=== PATIENT | male | born 1955 | race Caucasian/White ===

== ENCOUNTER 2022-11-27 01:57 | Inpatient (IN) | payer MEDICARE, OTHER ==
[~2022-11-27] VITALS: Ht 177.8 cm; Wt 89.4 kg
--- NOTE | 2022-11-27 02:00 | NUR ---
BIBRA 100 FROM [facility] HGB OF 7.4, K: 5.6 AND ELEVATED WBC. PATIENT CAME UNRESPONSIVE, AAOX0, WITH TRACHE ATTACHED TO VENT. WITH GTUBE FOR FEEDING AND MEDS. WITH IFC ATTACHED TO UROBAG. PATIENT CAME WITH IV KIM ON LEFT HAND G20.
--- NOTE | 2022-11-27 02:24 | NUR ---
PT CONNECTED TO VENT SETTINGS: TOLERATING VENT WELL AT SPO2 100% FIO2 70% VT 500 RR 16 I:E 1:2 PEEP 5
--- NOTE | 2022-11-27 02:25 | NUR ---
EMT AT PT'S BEDSIDE FOR EKG
--- NOTE | 2022-11-27 02:26 | NUR ---
COVID ANTIGEN SWAB COLLECTED AND SENT TO LAB
--- NOTE | 2022-11-27 02:26 | NUR ---
L KHANH #20G S/L BLOOD COLLECTED AND SENT TO LAB
[2022-11-27] MEDS ORDERED: ACETAMINOPHEN 650 MG/SUPP.RECT RC ONE ×2 (02:27→02:30)
[2022-11-27] MEDS ORDERED: IV NS 0.9% 1,000 ML BAG IV ONE (02:30)
--- NOTE | 2022-11-27 02:35 | NUR ---
COOLING MEASURES IN PLACE.
--- NOTE | 2022-11-27 02:39 | NUR ---
IV KIM G20 INSERTED ON RIGHT HAND.
[2022-11-27 02:46] LABS: BASOPHILS # (AUTO) 0.1 K/uL (0.0-0.2); BASOPHILS % (AUTO) 0.3 % (0.0-2.0); EOSINOPHILS % (AUTO) 4.3 % (0.0-6.0); HEMATOCRIT 24 % (39-51); HEMOGLOBIN 7.7 g/dL (13.5-17.5); LYMPHOCYTES # (AUTO) 1.5 K/uL (0.8-4.8); LYMPHOCYTES % (AUTO) 7.7 % (20.0-44.0); MEAN CORPUSCULAR HGB CONC 32 g/dl (31.0-36.0); MEAN CORPUSCULAR VOLUME 94 fL (80-96); MONOCYTES # (AUTO) 1.1 K/uL (0.1-1.30); MONOCYTES % (AUTO) 5.5 % (2.0-12.0); NEUTROPHILS # (AUTO) 16.1 K/uL (1.8-8.9); NEUTROPHILS % (AUTO) 82.2 % (43.0-81.0); PLATELET COUNT (AUTO) 391 K/uL (150-450); RED BLOOD CELL COUNT(AUTO) 2.55 MIL/uL (4.5-6.0); WHITE BLOOD COUNT (AUTO) 19.5 K/uL (4.3-11.0)
--- NOTE | 2022-11-27 02:48 | NUR ---
RT NOTE LATE ENTRY Pt rec'd trached on mech vent on AC mode settings given from FD. Pt shows no signs of resp distress or sob noted. trach is patent and secured. pt sx'd for mod amt of yellow secretions. alarms are set and audible. Micha bag @ bedside. Addendum: 11/27/22 at 0315 by ROD AARON RT Amended: Links added.
[2022-11-27 02:50] LABS: BILIRUBIN,URINE NEGATIVE (NEGATIVE); COLOR,URINE YELLOW (YELLOW); LEUKOCYTE ESTERASE ,URINE 3+ (NEGATIVE); NITRITE, URINE POSITIVE (NEGATIVE); PH,URINE 7.5 (5.0-8.0); PROTEIN,URINE 1+ mg/dl (NEGATIVE); UGLUCOSE NEGATIVE (NEGATIVE); UROBILINOGEN,URINE 0.2 EU/dL (0.2)
[2022-11-27 03:04] LABS: ALANINE AMINOTRANSFERASE 18 U/L (12-78); ALBUMIN 2.7 g/dL (3.4-5.0); ALKALINE PHOSPHATASE 128 U/L (46-116); ASPARTATE AMINOTRANSFERASE 18 U/L (15-37); BILIRUBIN,DIRECT 0.2 mg/dL (0.0-0.2); BILIRUBIN,TOTAL 0.3 mg/dL (0.2-1.0); CALCIUM, SERUM 9.3 mg/dL (8.5-10.1); CARBON DIOXIDE 29 mmol/L (21-32); CHLORIDE 104 mmol/L (98-107); CREATININE 1.7 mg/dL (0.6-1.3); GLUCOSE 125 mg/dL (74-106); LIPASE 93 U/L (73-393); POTASSIUM 5.5 mmol/L (3.5-5.1); SODIUM SERUM 139 mmol/L (136-145); TOTAL PROTEIN, SERUM 8.9 g/dL (6.4-8.2); UREA NITROGEN, BLOOD 59 mg/dL (7-18)
[2022-11-27 03:17] LABS: BACTERIA,URINE Many /HPF (None Seen); SQUAMOUS EPITHELIAL CELL,UR Few /HPF (None Seen)
[2022-11-27] MEDS ORDERED: CEFTRIAXONE 1GM BAG (ER ONLY) 50 ML IV ONE (03:20)
[2022-11-27] MEDS ORDERED: AZITHROMYCIN 500 MG in IV D5W 250 ML IV SCH (03:30)
[2022-11-27] MEDS ORDERED: CEFTRIAXONE 1GM BAG (ER ONLY) 1 GM/50 ML PIGGYBACK IV ONE (03:30)
[2022-11-27] MEDS ORDERED: AZITHROMYCIN 500 MG VIAL ONE (03:30)
--- NOTE | 2022-11-27 03:47 | NUR ---
REPORT GIVEN TO GERALDINE BRUCE RN FOR ABHINAV
[2022-11-27] MEDS ORDERED: ONDANSETRON HCL/PF 4 MG/2 ML VIAL IVP PRN (04:00)
[2022-11-27] MEDS ORDERED: ACETAMINOPHEN 325 MG TABLET PO PRN (04:00)
[2022-11-27] MEDS ORDERED: MORPHINE SULFATE INJ 2 MG/ML DISP.SYRIN IV PRN (04:00)
[2022-11-27] MEDS ORDERED: CEFEPIME 2 GM in IV D5W 100 ML IV ONE (04:30)
--- NOTE | 2022-11-27 05:24 | NUR ---
TRANSFERRED TO [facility] VIA ACLS PROTOCOL
[2022-11-27] MEDS: IV NS 0.9% 1,000 ML IV SCH ×2 (06:54→18:07)
[2022-11-27] MEDS ORDERED: SODIUM POLYSTYRENE SULFONATE 15 G/60 ML BOTTLE PO ONE (07:30)
[2022-11-27 08:00] VITALS: BP 101/40
[2022-11-27] MEDS ORDERED: FINA5TAB11 GT (08:37)
[2022-11-27] MEDS ORDERED: CICL6.6S5 TP (08:37)
[2022-11-27] MEDS ORDERED: ZINC50TA65 GT (08:37)
[2022-11-27] MEDS ORDERED: FERR325T23 GT (08:37)
[2022-11-27] MEDS ORDERED: LAMO150T6 PO (08:37)
[2022-11-27] MEDS ORDERED: CRAN400C GT (08:37)
[2022-11-27] MEDS ORDERED: ENOX40DI SQ (08:37)
[2022-11-27] MEDS ORDERED: DILTIAZEM GT (08:37)
[2022-11-27] MEDS ORDERED: IPRA0.2S9 IH (08:37)
[2022-11-27] MEDS ORDERED: CLOB15OI3 TP (08:37)
[2022-11-27] MEDS ORDERED: AMIN887L GT (08:37)
[2022-11-27] MEDS ORDERED: DOCU-141 GT (08:37)
[2022-11-27] MEDS ORDERED: ALBU1.257 IH (08:37)
[2022-11-27] MEDS ORDERED: LACT100027 PO (08:37)
[2022-11-27] MEDS ORDERED: LANS30CA62 GT (08:37)
[2022-11-27] MEDS ORDERED: TAMS-12 GT (08:37)
[2022-11-27] MEDS ORDERED: POTA20PA3 GT (08:37)
[2022-11-27] MEDS ORDERED: LISI-768 PO (08:37)
[2022-11-27] MEDS ORDERED: LEVE1000 GT (08:37)
[2022-11-27] MEDS ORDERED: ACET325T53 GT ×2 (08:37)
[2022-11-27] MEDS ORDERED: MAGN400O6 GT (08:37)
[2022-11-27] MEDS ORDERED: BISA10SU11 RC (08:37)
[2022-11-27] MEDS ORDERED: METO25TA6 GT (08:37)
[2022-11-27] MEDS ORDERED: NA P133E RC (08:37)
[2022-11-27] MEDS ORDERED: FURO-144 GT (08:37)
[2022-11-27] MEDS ORDERED: ASCO500C17 GT (08:37)
[2022-11-27] MEDS ORDERED: ATOR40TA GT (08:37)
[2022-11-27] MEDS ORDERED: CEFEPIME 2 GM in IV D5W 100 ML IV SCH ×2 (09:00→17:00)
[2022-11-27] MEDS: HEPARIN SODIUM, PORCINE 5000 UNITS/1 ML VIAL SQ SCH ×2 (09:21→21:34)
[2022-11-27] MEDS ORDERED: SODIUM POLYSTYRENE SULF. PWD 15 GM UDC PO ONE (11:00)
[2022-11-27 12:00] VITALS: BP 106/50
[2022-11-27] MEDS ORDERED: PIPERACILLIN /TAZOBACTAM 3.375 G in IV D5W 50 ML IV SCH (13:00)
[2022-11-27] MEDS ORDERED: IPRATROPIUM/ALBUTEROL INHALER IH SCH (13:00)
[2022-11-27] MEDS ORDERED: VANCOMYCIN 1.25 GM in IV D5W 250 ML IV ONE (14:00)
[2022-11-27 16:00] VITALS: BP 107/55
[2022-11-27] MEDS: ALBUTEROL FS 2.5 MG/3 ML VIAL.NEB NEB SCH ×2 (18:43→23:32)
[2022-11-27] MEDS: IPRATROPIUM NEB FS 0.5 MG/2.5 ML AMPUL.NEB NEB SCH ×2 (18:43→23:32)
--- NOTE | 2022-11-27 19:30 | NUR ---
RN NOTE RECEIVED PT FOR CONTINUITY OF CARE. PATIENT IN NO S/SX OF ACUTE DISTRESS AT THIS TIME; CURRENTLY ON MECHANICAL VENT; SETTING PRESCRIBED, WITH 02 SAT >95% AT THIS TIME. WITH IV ACCESS PATENT, INTACT AND FLUSHING WELL. WITH RUNNING NS@75CC/Hr. WITH PEG TUBE INTACT AND CLAMPED AT THIS TIME. WILL ENSURE SAFETY MEASURES WITHIN THE SHIFT. PATIENT BED ALARM IS ON. HEAD OF BED ELEVATED. BED IS LOCKED, IN LOWEST POSITION AND SIDE RAILS UP. CALL LIGHT WITHIN REACH OF THE PATIENT. WILL CONTINUE TO MONITOR AND REASSESS FOR ANY CHANGES AND WILL CARRY OUT ANY ONGOING AND ACTIVE MD ORDER.
[2022-11-27 20:00] VITALS: BP 101/57
[2022-11-27] MEDS: PIPERACILLIN /TAZOBACTAM 3.375 G in IV D5W 100 ML IV SCH (21:33)
[2022-11-27] MEDS ORDERED: NA PHOS,M-B/NA PHOS,DI-BA 1 EA ENEMA RC PRN (23:30)
[2022-11-27] MEDS ORDERED: IPRATROPIUM NEB FS 0.5 MG/2.5 ML AMPUL.NEB IH PRN (23:30)
[2022-11-27] MEDS ORDERED: BISACODYL SUPP (10 MG) 10 MG/SUPP.RECT SUPP.RECT RC PRN (23:30)
[2022-11-27] MEDS ORDERED: MAGNESIUM HYDROXIDE 30 ML UDC GT PRN (23:30)
[2022-11-28] VITALS (15 sets, daily range): BP systolic 102–137; BP diastolic 54–75
[2022-11-28] MEDS: FUROSEMIDE 40 MG TABLET GT SCH ×3 (00:07→16:04)
[2022-11-28] MEDS: LISINOPRIL (5MG) 5 MG TABLET PO SCH ×2 (00:08→08:26)
[2022-11-28] MEDS: METOPROLOL TARTRATE 25 MG TABLET GT SCH ×3 (00:09→21:09)
[2022-11-28] MEDS: FINASTERIDE (5 MG) 5 MG TABLET GT SCH ×2 (01:12→08:29)
[2022-11-28] MEDS: TAMSULOSIN 0.4 MG CAP.SR.24H GT SCH ×2 (01:19→21:09)
[2022-11-28] MEDS: LEVETIRACETAM SOL (5 ML) 100 MG/ML UDC GT SCH ×3 (01:20→21:09)
[2022-11-28] MEDS: ZINC SULFATE 220 MG CAPSULE GT SCH ×2 (01:20→08:25)
[2022-11-28] MEDS: LamoTRIgine 100 MG TABLET PO SCH ×3 (01:21→21:10)
[2022-11-28] MEDS: VANCOMYCIN HCL IV SCH ×2 (01:22→16:00)
[2022-11-28] MEDS: D5W IV SCH ×2 (01:22→16:00)
[2022-11-28] MEDS: ACETAMINOPHEN 650 MG/20.3 ML UDC GT SCH ×3 (01:25→16:04)
[2022-11-28] MEDS: IPRATROPIUM NEB FS 0.5 MG/2.5 ML AMPUL.NEB NEB SCH ×6 (03:34→23:44)
--- NOTE | 2022-11-28 04:00 | NUR ---
RN NOTE PATIENT REMAINED TO BE IN NO SIGNS OF ACUTE RESPIRATORY DISTRESS , VITAL SIGNS STABLE AT THIS TIME. REGULAR TURNING AND REPOSITIONING DONE, SUCTIONING DONE, AND AM PATIENT CARE RENDERED WILL CONTINUE TO MONITOR AND REASSESS FOR ANY CHANGES THROUGHOUT THE SHIFT.
[2022-11-28] MEDS: PIPERACILLIN /TAZOBACTAM 3.375 G in IV D5W 100 ML IV SCH ×3 (05:13→20:35)
[2022-11-28] MEDS: IV NS 0.9% 1,000 ML IV SCH (06:20)
[2022-11-28 06:39] LABS: BASOPHILS # (AUTO) 0.1 K/uL (0.0-0.2); BASOPHILS % (AUTO) 0.4 % (0.0-2.0); EOSINOPHILS % (AUTO) 6.8 % (0.0-6.0); LYMPHOCYTES # (AUTO) 2.1 K/uL (0.8-4.8); LYMPHOCYTES % (AUTO) 13.4 % (20.0-44.0); MEAN CORPUSCULAR HGB CONC 32 g/dl (31.0-36.0); MEAN CORPUSCULAR VOLUME 95 fL (80-96); MONOCYTES # (AUTO) 0.6 K/uL (0.1-1.30); MONOCYTES % (AUTO) 4.2 % (2.0-12.0); NEUTROPHILS # (AUTO) 11.6 K/uL (1.8-8.9); NEUTROPHILS % (AUTO) 75.2 % (43.0-81.0); PLATELET COUNT (AUTO) 276 K/uL (150-450); RED BLOOD CELL COUNT(AUTO) 2.02 MIL/uL (4.5-6.0); WHITE BLOOD COUNT (AUTO) 15.4 K/uL (4.3-11.0)
--- NOTE | 2022-11-28 06:44 | NUR ---
RN CLOSING NOTE PATIENT REMAINS IN ROOM IN NO SIGNS OF RESPIRATORY DISTRESS, PATIENT STILL ON MECH VENT; SETTINGS PRESCRIBED;TOLERATING WELL SATURATING @ >95% SP02. SR ON MONITOR. SAFETY MEASURES IMPLEMENTED, BED IN LOWEST POSITION, LOCKED, SIDE RAILS UP, CALL LIGHT WITHIN REACH. ALL NEEDS AND ORDERS ADDRESSED DURING THE SHIFT. IV ACCESS MAINTAINED INTACT, SECURED AND FLUSHING WELL. ALL DUE MEDS GIVEN ORDERED & SCHEDULED ; PATIENT TOLERATED WELL. PATIENT KEPT CLEAN AND COMFORTABLE WITHIN THE SHIFT. PATIENT ENDORSED TO INCOMING SHIFT RN WITH STABLE VITAL SIGN AND FOR CONTINUITY OF CARE.
[2022-11-28 07:07] LABS: HEMOGLOBIN 6.1 g/dL (13.5-17.5)
[2022-11-28 07:08] LABS: HEMATOCRIT 19 % (39-51)
[2022-11-28 07:15] LABS: ALBUMIN 2.1 g/dL (3.4-5.0); BILIRUBIN,TOTAL 0.3 mg/dL (0.2-1.0); CALCIUM, SERUM 8.8 mg/dL (8.5-10.1); CREATININE 1.5 mg/dL (0.6-1.3); MAGNESIUM 2.8 mg/dL (1.8-2.4); POTASSIUM 3.4 mmol/L (3.5-5.1); TOTAL PROTEIN, SERUM 7.8 g/dL (6.4-8.2)
--- NOTE | 2022-11-28 07:26 | NUR ---
RN OPEN NOTE PATIENT REMAINS IN ROOM IN NO SIGNS OF RESPIRATORY DISTRESS, PATIENT STILL ON MECH VENT; SETTINGS PRESCRIBED;TOLERATING WELL SATURATING @ >95% SP02. SR ON MONITOR. SAFETY MEASURES IMPLEMENTED, BED IN LOWEST POSITION, LOCKED, SIDE RAILS UP, CALL LIGHT WITHIN REACH. IV ACCESS ON L HAND 29 G , AND R HAND 29 G SECURED AND FLUSHING WELL. WILL KEEP PATIENT KEPT CLEAN AND COMFORTABLE WITHIN THE SHIFT. WILL CONTINUE TO MONITOR
[2022-11-28] MEDS: ALBUTEROL FS 2.5 MG/3 ML VIAL.NEB NEB SCH ×5 (08:02→19:52)
[2022-11-28] MEDS: PROSOURCE / PROSTAT (PYXIS) 30 ML UDC GT SCH ×2 (08:22→16:04)
[2022-11-28] MEDS: ASCORBIC ACID 500 MG TABLET GT SCH (08:23)
[2022-11-28] MEDS: PANTOPRAZOLE 40 MG TABLET.DR PO SCH (08:25)
[2022-11-28] MEDS: FERROUS SULFATE (325 MG) 325 MG/TAB TABLET GT SCH ×3 (08:26→16:04)
[2022-11-28] MEDS: CLOBETASOL 0.05% OINT 30 GM TUBE TP SCH ×2 (08:38→16:18)
[2022-11-28] MEDS ORDERED: ENOXAPARIN SODIUM 40 MG/0.4 ML DISP.SYRIN SQ SCH (09:00)
[2022-11-28] MEDS ORDERED: POTASSIUM CHLORIDE 20 MEQ POWDER PACKET GT SCH (09:00)
[2022-11-28] MEDS ORDERED: CRANBERRY EXT/C/L. SPOROGENES 405 MG/TAB TABLET GT SCH (09:00)
[2022-11-28] MEDS ORDERED: PREVACID (NF) 30 MG TAB GT SCH (09:00)
[2022-11-28] MEDS ORDERED: CICLOPIROX TP SCH (09:00)
--- NOTE | 2022-11-28 11:45 | NUR ---
RT NOTE: NO SCANNING DUE TO COMPUTER/SCANNER AVAILABLE. JONO SORIANO NOTIFIED. Addendum: 11/28/22 at 1808 by ANDREW BRICE RT RT NOTE: NO MEDICATION SCANNING DUE TO COMPUTER/SCANNER NOT AVAILABLE. JONO SORIANO NOTIFIED.
[2022-11-28] MEDS: DILTIAZEM HCL 30 MG TABLET PO SCH (17:01)
[2022-11-28 19:27] LABS: BAND % (MANUAL) 1 % (0.0-5.0); EOSINOPHILS % (MANUAL) 5 % (0-4); LYMPHOCYTES % (MANUAL) 14 % (16-48); MONOCYTES % (MANUAL) 4 % (0-11.0); NEUTROPHILS % (MANUAL) 76 (42-76)
--- NOTE | 2022-11-28 19:37 | NUR ---
RN OPENING NOTE PATIENT ASLEEP NO SIGNS OF RESPIRATORY DISTRESS, PATIENT STILL ON MECH VENT; SETTINGS PRESCRIBED;TOLERATING WELL SATURATING @ >95% SP02. SR ON MONITOR. SAFETY MEASURES IMPLEMENTED, BED IN LOWEST POSITION, LOCKED, SIDE RAILS UP, CALL LIGHT WITHIN REACH. IV ACCESS MAINTAINED INTACT, SECURED AND FLUSHING WELL. PATIENT KEPT CLEAN AND COMFORTABLE PT AT BEDSIDE DRAKE .
--- NOTE | 2022-11-28 20:28 | NUR ---
RT Received pt on ordered vent settings: AC 16 500 40% +5. Pt asleep upon initial assessment, SPO2 100%. No respiratory distress noted. Neb tx given and tolerated, no adverse reactions noted. Suctioned x2 & PRN with thick yellow secretions. Trach is patent and secured. Ambu-bag bedside. Vent is plugged into red outlet, and alarms are on and audible.
[2022-11-28] MEDS: ATORVASTATIN 40 MG TABLET GT SCH (21:09)
[2022-11-28] MEDS: DOCUSATE SODIUM 100 MG CAPSULE PO SCH (21:09)
[2022-11-29] MEDS: DILTIAZEM HCL 30 MG TABLET PO SCH ×4 (00:48→17:22)
[2022-11-29 00:59] VITALS: BP 138/72
[2022-11-29] MEDS: ALBUTEROL FS 2.5 MG/3 ML VIAL.NEB NEB SCH ×4 (01:53→19:49)
[2022-11-29] MEDS: VANCOMYCIN HCL IV SCH ×2 (02:26→14:10)
[2022-11-29] MEDS: D5W IV SCH ×2 (02:26→14:10)
[2022-11-29] MEDS: IPRATROPIUM NEB FS 0.5 MG/2.5 ML AMPUL.NEB NEB SCH ×4 (03:50→19:49)
[2022-11-29 04:38] VITALS: BP 140/77
[2022-11-29] MEDS: PIPERACILLIN /TAZOBACTAM 3.375 G in IV D5W 100 ML IV SCH ×3 (06:35→22:14)
--- NOTE | 2022-11-29 06:59 | NUR ---
RN CLOSING NOTE PATIENT ASLEEP NO SIGNS OF RESPIRATORY DISTRESS, PATIENT STILL ON MECH VENT; SETTINGS PRESCRIBED;TOLERATING WELL SATURATING @ >95% SP02. SR ON MONITOR. SAFETY MEASURES IMPLEMENTED, BED IN LOWEST POSITION, LOCKED, SIDE RAILS UP, CALL LIGHT WITHIN REACH. IV ACCESS MAINTAINED INTACT, SECURED AND FLUSHING WELL RUINING NS@75ML/HR PATIENT KEPT CLEAN AND COMFORTABLE.
[2022-11-29 07:10] LABS: BASOPHILS # (AUTO) 0.1 K/uL (0.0-0.2); BASOPHILS % (AUTO) 0.5 % (0.0-2.0); EOSINOPHILS % (AUTO) 11.3 % (0.0-6.0); HEMATOCRIT 22 % (39-51); HEMOGLOBIN 7.2 g/dL (13.5-17.5); LYMPHOCYTES # (AUTO) 1.7 K/uL (0.8-4.8); LYMPHOCYTES % (AUTO) 16.1 % (20.0-44.0); MEAN CORPUSCULAR HGB CONC 33 g/dl (31.0-36.0); MEAN CORPUSCULAR VOLUME 93 fL (80-96); MONOCYTES # (AUTO) 0.6 K/uL (0.1-1.30); MONOCYTES % (AUTO) 5.3 % (2.0-12.0); NEUTROPHILS % (AUTO) 66.8 % (43.0-81.0); PLATELET COUNT (AUTO) 279 K/uL (150-450); RED BLOOD CELL COUNT(AUTO) 2.36 MIL/uL (4.5-6.0); WHITE BLOOD COUNT (AUTO) 10.5 K/uL (4.3-11.0)
[2022-11-29 07:28] LABS: CALCIUM, SERUM 8.9 mg/dL (8.5-10.1); CREATININE 1.2 mg/dL (0.6-1.3); MAGNESIUM 2.5 mg/dL (1.8-2.4); PHOSPHORUS 3.3 mg/dL (2.5-4.9); POTASSIUM 3.2 mmol/L (3.5-5.1)
[2022-11-29 08:00] VITALS: BP 105/70
--- NOTE | 2022-11-29 08:12 | NUR ---
CANDY CUTTER MACHINE NOTES PATIENT IN BED WITH EYES OPEN. OBTUNDED WITH TRACH TO VENT SETTING ORDERED. HEAD OF BED ELEVATED. ON TELE MONITOR WITH HR SINUS BRADYCARDIA 51. ON TRINH CATH DRAINING TO GRAVITY ITH YELLOW URINE. G TUBE CLAMPED. NPO EXCEPT MEDS. GLEN MIDLINE IN PLACE WITH IV FLUID ORDERED. ALL NEEDS ATTENDED. BED ON LOWEST LOCKED POSITION, CALL LIGHT WITHIN REACH. WILL CONTINUE TO MONITOR.
[2022-11-29] MEDS: METOPROLOL TARTRATE 25 MG TABLET GT SCH ×2 (09:00→21:00)
[2022-11-29] MEDS: LamoTRIgine 100 MG TABLET PO SCH ×2 (09:13→22:15)
[2022-11-29] MEDS: ZINC SULFATE 220 MG CAPSULE GT SCH (09:13)
[2022-11-29] MEDS: ACETAMINOPHEN 650 MG/20.3 ML UDC GT SCH ×2 (09:13→16:42)
[2022-11-29] MEDS: PANTOPRAZOLE 40 MG TABLET.DR PO SCH (09:13)
[2022-11-29] MEDS: FINASTERIDE (5 MG) 5 MG TABLET GT SCH (09:13)
[2022-11-29] MEDS: FERROUS SULFATE (325 MG) 325 MG/TAB TABLET GT SCH ×3 (09:13→16:42)
[2022-11-29] MEDS: LEVETIRACETAM SOL (5 ML) 100 MG/ML UDC GT SCH ×2 (09:13→22:14)
[2022-11-29] MEDS: PROSOURCE / PROSTAT (PYXIS) 30 ML UDC GT SCH ×2 (09:14→16:44)
[2022-11-29] MEDS: ASCORBIC ACID 500 MG TABLET GT SCH (09:14)
[2022-11-29] MEDS: CLOBETASOL 0.05% OINT 30 GM TUBE TP SCH ×2 (09:50→17:26)
--- NOTE | 2022-11-29 10:26 | NUR ---
DIGITAL ASSISTANT NOTE PER DR GHADA ROMERO TO GIVE LING AND PRINBK AWARE THAT BP 105/70
[2022-11-29] MEDS: FUROSEMIDE 40 MG TABLET GT SCH ×2 (10:30→16:42)
[2022-11-29] MEDS: LISINOPRIL (5MG) 5 MG TABLET PO SCH (10:30)
[2022-11-29] MEDS ORDERED: POTASSIUM CHLORIDE 20 MEQ POWDER PACKET GT SCH (11:00)
[2022-11-29 12:00] VITALS: BP 108/60
--- NOTE | 2022-11-29 12:26 | NUR ---
COMPUTER TYPESETTER NOTE SEEN BY DR RODRIGUEZ UPDATED PATIENT CONDITION
--- NOTE | 2022-11-29 15:04 | NUR ---
FUSE SPOOLER NOTES ROUNDS MADE. REPOSITIONED. TRACH CARE COMPLETED. GTUBE FEEDING STARTED ORDERED BY DR ARTHUR. TOLERATING WELL. WOUND CONSULT PENDING.
[2022-11-29] MEDS: JEVITY 1.2 CAL 1,000 ML BOTTLE GT SCH (15:17)
--- NOTE | 2022-11-29 15:21 | NUR ---
COSMETIC ASSEMBLER NOTES STOOL COLLECTED.
[2022-11-29] MEDS: IV NS 0.9% 1,000 ML IV PRN (15:44)
[2022-11-29 16:00] VITALS: BP 125/67
[2022-11-29 16:10] LABS: OCCULT BLOOD STOOL NEGATIVE (NEGATIVE)
--- NOTE | 2022-11-29 18:25 | NUR ---
SENIOR HOUSEKEEPER CLOSING NOTE PATIENT RESTING IN BED WITH FAMIILY MEMBER AT BEDSIDE. [facility] WITH SETTINGS PRESCRIBED. NO SIGNS OF SOB OR RESPIRATORY DISTRESS. TOLERATING WELL. SB ON MONITOR. URINE DRAINING TO GRAVITY AND YELLOW. G-TUBE IN PLACE WITH JEVITY RUNNING AT 30 ML/HR. TOLERATING WELL. IV ACCESS AT GLEN MIDLINE RUNNING NS @ 75ML/HR. IV ACCESS IN L HAND 20G. INTACT AND FLUSHING WELL. ALL SAFETY MEASURES IN PLACE WITH BED IN LOWEST POSITION, LOCKED, SIDE RAILS UP AND CALL LIGHT WITHIN REACH. WILL ENDORSE TO PM NURSE FOR CONTINUITY OF CARE.
--- NOTE | 2022-11-29 19:30 | NUR ---
SELF DEFENSE INSTRUCTOR OPENING NOTE RECEIVED PATIENT REST[facility] BED [facility] WITH [facility]TINGS PRESCRIBED. NO SIGNS OF SOB OR RESPIRATORY DISTRESS. TOLERATING WELL. SB ON MONITOR. URINE DRAINING TO GRAVITY AND YELLOW. G-TUBE IN PLACE WITH JEVITY RUNNING AT 30 ML/HR. TOLERATING WELL. IV ACCESS AT GLEN MIDLINE RUNNING NS @ 75ML/HR. IV ACCESS IN L HAND 20G. INTACT AND FLUSHING WELL. ALL SAFETY MEASURES IN PLACE WITH BED IN LOWEST POSITION, LOCKED, SIDE RAILS UP AND CALL LIGHT WITHIN REACH. WILL CONTINUE TO MONITOR THROUGHOUT THE SHIFT.
[2022-11-29 20:00] VITALS: BP 135/66
[2022-11-29] MEDS: ATORVASTATIN 40 MG TABLET GT SCH (22:15)
[2022-11-29] MEDS: TAMSULOSIN 0.4 MG CAP.SR.24H GT SCH (22:15)
[2022-11-29] MEDS: DOCUSATE SODIUM 100 MG CAPSULE PO SCH (22:15)
--- NOTE | 2022-11-29 22:30 | NUR ---
RN NOTE SCHEDULED METOPROLOL HELD AT THIS TIME D/T SB AT THE MONITOR WITH HR <60'S. CN MADE AWARE.
[2022-11-30] VITALS: BP 135/58
[2022-11-30] MEDS: IPRATROPIUM NEB FS 0.5 MG/2.5 ML AMPUL.NEB NEB SCH ×4 (01:24→19:34)
[2022-11-30] MEDS: ALBUTEROL FS 2.5 MG/3 ML VIAL.NEB NEB SCH ×4 (01:24→19:34)
[2022-11-30] MEDS: VANCOMYCIN HCL IV SCH (01:32)
[2022-11-30] MEDS: D5W IV SCH (01:32)
[2022-11-30 04:00] VITALS: BP 121/70
[2022-11-30] MEDS: DILTIAZEM HCL 30 MG TABLET PO SCH ×4 (05:22→18:00)
[2022-11-30] MEDS: PIPERACILLIN /TAZOBACTAM 3.375 G in IV D5W 100 ML IV SCH ×3 (05:22→20:26)
[2022-11-30] MEDS: IV NS 0.9% 1,000 ML IV PRN ×2 (05:35→18:54)
--- NOTE | 2022-11-30 05:56 | NUR ---
RN NOTE RECEIVED ABG RESULT FROM RT. CHANNEL CEMENTER INSOLE MACHINE MD MADE AWARE NNO AT THIS TIME. WILL CONT TO MONITOR.
--- NOTE | 2022-11-30 06:47 | NUR ---
HAND SPRING FORMER CLOSING NOTE PATIENT REST[facility]ED [facility] WITH [facility] PRESCRIBED. NO SIGNS OF SOB OR RESPIRATORY DISTRESS. TOLERATING WELL. SR ON MONITOR AT 67. URINE DRAINING TO GRAVITY AND YELLOW. G-TUBE IN PLACE WITH JEVITY RUNNING AT 50 ML/HR. TOLERATING WELL. IV ACCESS AT GLEN MIDLINE RUNNING NS @ 75ML/HR. IV ACCESS IN L HAND 20G. INTACT AND FLUSHING WELL. ALL DUE MEDS GIVEN, KEPT DRY AND CLEAN, ALL SAFETY MEASURES IN PLACE WITH BED IN LOWEST POSITION, LOCKED, SIDE RAILS UP AND CALL LIGHT WITHIN REACH. WILL ENDORSE TO AM SHIFT NURSE FOR CONTINUITY OF CARE.
[2022-11-30 06:56] LABS: BASOPHILS # (AUTO) 0.1 K/uL (0.0-0.2); BASOPHILS % (AUTO) 0.5 % (0.0-2.0); EOSINOPHILS % (AUTO) 6.9 % (0.0-6.0); HEMATOCRIT 22 % (39-51); HEMOGLOBIN 7.4 g/dL (13.5-17.5); LYMPHOCYTES # (AUTO) 1.5 K/uL (0.8-4.8); LYMPHOCYTES % (AUTO) 10.6 % (20.0-44.0); MEAN CORPUSCULAR HGB CONC 33 g/dl (31.0-36.0); MEAN CORPUSCULAR VOLUME 92 fL (80-96); MONOCYTES # (AUTO) 0.8 K/uL (0.1-1.30); MONOCYTES % (AUTO) 6.1 % (2.0-12.0); NEUTROPHILS # (AUTO) 10.4 K/uL (1.8-8.9); NEUTROPHILS % (AUTO) 75.9 % (43.0-81.0); PLATELET COUNT (AUTO) 272 K/uL (150-450); RED BLOOD CELL COUNT(AUTO) 2.44 MIL/uL (4.5-6.0); WHITE BLOOD COUNT (AUTO) 13.7 K/uL (4.3-11.0)
[2022-11-30 07:08] LABS: CALCIUM, SERUM 8.7 mg/dL (8.5-10.1); CREATININE 1.1 mg/dL (0.6-1.3); POTASSIUM 3.4 mmol/L (3.5-5.1)
[2022-11-30 07:10] LABS: PHOSPHORUS 3.6 mg/dL (2.5-4.9)
--- NOTE | 2022-11-30 07:10 | NUR ---
TELE OPENING CARE: RECEIVED PATINE IN BED, OBTUNDED WITH MECHANICAL VENT ORDERED. NO RESPIRATORY DISTRESS NOTED, WITH OXYGEN SATURATION OF 100%. ON SB WITH HR OF 58 PER TELE MONITOR. HAS IV ACCESS ON LEFT UPPER ARM MIDLINE, INTACT, INFUSING WITH NS @ 75 ML/HR. IV SITE PATENT, NO S/S INFILTRATION NOTED. ON JEVITY @ 50 ML/HR, G-TUBE SITE PATENT AND IN PLACE. TRINH CATHETER IN PLACE VIA GRAVITY, DRAINING WITH YELLOW COLORED URINE, NO HEMATURIA AND NO SEDIMENTATION NOTED. HOB KEPT ELEVATED. ALL SAFETY MEASURES IN PLACE. BED LOCKED AND IN LOWEST POSITION WITH BED ALARM ON. CALL LIGHT WITHIN REACH. WILL CONTINUE TO MONITOR PATIENT THROUGHOUT SHIFT.
[2022-11-30 07:17] LABS: ABG BASE EXCESS -1.6 mmol/L; ABG PCO2 36.2 mmHg (35.0-45.0); ABG PH 7.414 (7.350-7.450); ABG PO2 122.6 mmHg (75.0-100.0); COHb 0.3 % (0.5-1.5); MetHb 0.2 % (0.0-1.5); O2Hb 97.5 % (94.0-97.0); PEEP,BG 5 cm H2O; SITE, ABG Left Radial; VT, ABG 500 mL
[2022-11-30 08:00] VITALS: BP 142/66
[2022-11-30] MEDS: LEVETIRACETAM SOL (5 ML) 100 MG/ML UDC GT SCH ×2 (08:34→20:15)
[2022-11-30] MEDS: LISINOPRIL (5MG) 5 MG TABLET PO SCH (08:35)
[2022-11-30] MEDS: ACETAMINOPHEN 650 MG/20.3 ML UDC GT SCH ×2 (08:35→17:24)
[2022-11-30] MEDS: METOPROLOL TARTRATE 25 MG TABLET GT SCH ×2 (08:35→20:21)
[2022-11-30] MEDS: PANTOPRAZOLE 40 MG TABLET.DR PO SCH (08:35)
[2022-11-30] MEDS: ZINC SULFATE 220 MG CAPSULE GT SCH (08:35)
[2022-11-30] MEDS: FERROUS SULFATE (325 MG) 325 MG/TAB TABLET GT SCH ×3 (08:35→17:24)
[2022-11-30] MEDS: ASCORBIC ACID 500 MG TABLET GT SCH (08:36)
[2022-11-30] MEDS: LamoTRIgine 100 MG TABLET PO SCH ×2 (08:36→20:21)
[2022-11-30] MEDS: FINASTERIDE (5 MG) 5 MG TABLET GT SCH (08:36)
[2022-11-30] MEDS: FUROSEMIDE 40 MG TABLET GT SCH ×2 (08:36→17:24)
[2022-11-30] MEDS: PROSOURCE / PROSTAT (PYXIS) 30 ML UDC GT SCH ×2 (08:38→17:24)
[2022-11-30] MEDS: CLOBETASOL 0.05% OINT 30 GM TUBE TP SCH ×2 (08:39→17:25)
--- NOTE | 2022-11-30 10:41 | NUR ---
WOUND CARE CONSULT: PT PRESENTS WITH LEFT EAR DEEP TISSUE INJURY IN EVOLUTION, SACRAL INTACT DTI WITH SCARRING, AREAS OF SKIN DISCOLORATION, RT AND LEFT FEET DRY WOUNDS, PRESENT ON ADMISSION. DPM CONSULT CALLED TO DR ROWE. DISCUSSED SKIN PROTECTION AND WOUND CARE RECOMMENDATIONS WITH NURSING STAFF. MD IN AGREEMENT WITH PLAN OF CARE. FIRST STEP LOW AIRLOSS MATTRESS ON ORDER. Addendum: 11/30/22 at 1044 by DAVIE ANDINO WNDNU Amended: Links added.
[2022-11-30] MEDS: NEOMY SULF/BACITRAC ZN/POLY 15 GM TUBE TP SCH (11:23)
[2022-11-30 12:00] VITALS: BP 126/64
[2022-11-30] MEDS ORDERED: POTASSIUM CHLORIDE 20 MEQ POWDER PACKET NG SCH (15:00)
[2022-11-30 16:00] VITALS: BP 140/65
--- NOTE | 2022-11-30 18:42 | NUR ---
ELECTRONIC MASKING SYSTEM OPERATOR CLOSING NOTES: PATIENT IN BED, OBTUNDED WITH MECHANICAL VENT ORDERED. NO RESPIRATORY DISTRESS NOTED THROUGHOUT SHIFT. WITH OXYGEN SATURATION OF 100%. ON SB WITH HR OF 47 PER TELE MONITOR. IV ACCESS ON LEFT UPPER ARM MIDLINE, INTACT, INFUSING WITH NS @ 75 ML/HR. NO S/S INFILTRATION NOTED. ON JEVITY @ 65 ML/HR, G-TUBE SITE PATENT AND IN PLACE, NOTED WITH 0- 50 ML OF RESIDUAL DURING SHIFT. TRINH CATHETER IN PLACE VIA GRAVITY, EMPTIED 1800 ML OF YELLOW COLORED URINE. ALL SAFETY MEASURES IMPLEMENTED. HOB KEPT ELEVATED. BED LOCKED AND IN LOWEST POSITION WITH BED ALARM ON. CALL LIGHT WITHIN REACH. WILL ENDORSE TO INCOMING NURSE FOR CONTINUITY OF CARE.
--- NOTE | 2022-11-30 19:50 | NUR ---
DIRECTOR MEDICAL SURGICAL OPENING NOTES RECEIVED PATIENT RESTING IN BED [facility] WITH SETTINGS PRESCRIBED. NO SIGNS OF SOB OR RESPIRATORY DISTRESS. TOLERATING WELL. SB ON MONITOR. URINE DRAINING TO GRAVITY AND YELLOW. G-TUBE IN PLACE WITH JEVITY RUNNING AT 65 ML/HR. TOLERATING WELL. IV ACCESS AT GLEN MIDLINE RUNNING NS @ 75ML/HR. IV ACCESS IN L HAND 20G. INTACT AND FLUSHING WELL. ALL SAFETY MEASURES IN PLACE WITH BED IN LOWEST POSITION, LOCKED, SIDE RAILS UP AND CALL LIGHT WITHIN REACH. WILL CONTINUE TO MONITOR THROUGHOUT THE SHIFT.
[2022-11-30 20:00] VITALS: BP 147/76
[2022-11-30] MEDS: TAMSULOSIN 0.4 MG CAP.SR.24H GT SCH (21:58)
[2022-11-30] MEDS: DOCUSATE SODIUM 100 MG CAPSULE PO SCH (21:59)
[2022-11-30] MEDS: ATORVASTATIN 40 MG TABLET GT SCH (21:59)
[2022-11-30] MEDS: VANCOMYCIN 1 GM in IV D5W 250ml IV SCH (23:38)
[2022-12-01] VITALS: BP 141/67
[2022-12-01] MEDS: DILTIAZEM HCL 30 MG TABLET PO SCH ×4 (00:12→17:05)
[2022-12-01] MEDS: IPRATROPIUM NEB FS 0.5 MG/2.5 ML AMPUL.NEB NEB SCH ×4 (01:51→19:34)
[2022-12-01] MEDS: ALBUTEROL FS 2.5 MG/3 ML VIAL.NEB NEB SCH ×4 (01:51→19:34)
[2022-12-01 04:00] VITALS: BP 139/75
[2022-12-01] MEDS: PIPERACILLIN /TAZOBACTAM 3.375 G in IV D5W 100 ML IV SCH ×3 (04:47→21:30)
[2022-12-01] MEDS: JEVITY 1.2 CAL 1,000 ML BOTTLE GT SCH (06:03)
--- NOTE | 2022-12-01 07:07 | NUR ---
VERTICA ARCHITECT OPENING NOTES: RECEIVED PATIENT IN BED, OBTUNDED WITH MECHANICAL VENT FOLLOWS: AC 16, TC 500, FI02 40%PEEP 5. WITH OXYGEN SATURATION OF 100%. NO RESPIRATORY DISTRESS NOTED. ON SR WITH HR OF 74 PER TELE MONITOR. HAS IV ACCESS ON LEFT UPPER ARM MIDLINE, INTACT, INFUSING WITH NS @ 75 ML/HR. IV SITE PATENT WITH NO S/S INFILTRATION NOTED. ON JEVITY @ 65 ML/HR, G-TUBE SITE PATENT AND IN PLACE. TRINH CATHETER IN PLACE DRAINING VIA GRAVITY WITH YELLOW COLORED URINE, NO HEMATURIA AND NO SEDIMENTATION NOTED. HOB KEPT ELEVATED AT ALL TIMES. ALL SAFETY MEASURES IN PLACE. BED LOCKED AND IN LOWEST POSITION WITH BED ALARM ON. CALL LIGHT WITHIN REACH. WILL CONTINUE TO MONITOR PATIENT THROUGHOUT
[2022-12-01 07:24] LABS: BASOPHILS # (AUTO) 0.1 K/uL (0.0-0.2); BASOPHILS % (AUTO) 0.5 % (0.0-2.0); CALCIUM, SERUM 9.1 mg/dL (8.5-10.1); CREATININE 0.9 mg/dL (0.6-1.3); EOSINOPHILS % (AUTO) 10.2 % (0.0-6.0); HEMATOCRIT 25 % (39-51); HEMOGLOBIN 8.2 g/dL (13.5-17.5); LYMPHOCYTES # (AUTO) 1.7 K/uL (0.8-4.8); LYMPHOCYTES % (AUTO) 15.5 % (20.0-44.0); MEAN CORPUSCULAR HGB CONC 33 g/dl (31.0-36.0); MEAN CORPUSCULAR VOLUME 93 fL (80-96); MONOCYTES # (AUTO) 0.6 K/uL (0.1-1.30); MONOCYTES % (AUTO) 5.6 % (2.0-12.0); NEUTROPHILS # (AUTO) 7.3 K/uL (1.8-8.9); NEUTROPHILS % (AUTO) 68.2 % (43.0-81.0); PLATELET COUNT (AUTO) 322 K/uL (150-450); POTASSIUM 3.1 mmol/L (3.5-5.1); RED BLOOD CELL COUNT(AUTO) 2.71 MIL/uL (4.5-6.0); WHITE BLOOD COUNT (AUTO) 10.8 K/uL (4.3-11.0)
--- NOTE | 2022-12-01 07:54 | NUR ---
MONTESSORI TODDLER TEACHER CLOSING NOTES PATIENT [facility]ED [facility] WITH [facility]TINGS PRESCRIBED. NO SIGNS OF SOB OR RESPIRATORY DISTRESS. TOLERATING WELL. SR ON MONITOR AT 61. URINE DRAINING TO GRAVITY AND YELLOW. G-TUBE IN PLACE WITH JEVITY RUNNING AT 65 ML/HR. TOLERATING WELL. IV ACCESS AT GLEN MIDLINE RUNNING NS @ 75ML/HR. IV ACCESS IN L HAND 20G. INTACT AND FLUSHING WELL. ALL DUE MEDS GIVEN, KEPT DRY AND CLEAN, ALL SAFETY MEASURES IN PLACE WITH BED IN LOWEST POSITION, LOCKED, SIDE RAILS UP AND CALL LIGHT WITHIN REACH. WILL ENDORSE TO AM SHIFT NURSE FOR CONTINUITY OF CARE.
[2022-12-01 08:00] VITALS: BP 120/63
[2022-12-01 09:01] LABS: ABG BASE EXCESS 1.8 mmol/L; ABG OXYGEN SATURATION 98.1 % (92.0-98.5); ABG PCO2 38.7 mmHg (35.0-45.0); ABG PH 7.445 (7.350-7.450); ABG PO2 114.2 mmHg (75.0-100.0); AaDO2 126.5 mmHg; COHb 0.3 % (0.5-1.5); MetHb 0.3 % (0.0-1.5); O2Hb 97.5 % (94.0-97.0); SITE, ABG Right Radial; VENT MODE, BG AC 16 500 40% 5
[2022-12-01 09:05] LABS: MAGNESIUM 1.9 mg/dL (1.8-2.4); PHOSPHORUS 2.8 mg/dL (2.5-4.9)
--- NOTE | 2022-12-01 09:11 | NUR ---
DR. ARTHUR NOTIFIED OF LACTIC ACID OF 2.4
[2022-12-01] MEDS: ACETAMINOPHEN 650 MG/20.3 ML UDC GT SCH ×2 (09:22→16:25)
[2022-12-01] MEDS: ZINC SULFATE 220 MG CAPSULE GT SCH (09:22)
[2022-12-01] MEDS: FERROUS SULFATE (325 MG) 325 MG/TAB TABLET GT SCH ×3 (09:22→16:25)
[2022-12-01] MEDS: LEVETIRACETAM SOL (5 ML) 100 MG/ML UDC GT SCH ×2 (09:22→21:30)
[2022-12-01] MEDS: FUROSEMIDE 40 MG TABLET GT SCH ×2 (09:22→16:25)
[2022-12-01] MEDS: METOPROLOL TARTRATE 25 MG TABLET GT SCH ×2 (09:23→21:34)
[2022-12-01] MEDS: PANTOPRAZOLE 40 MG TABLET.DR PO SCH (09:23)
[2022-12-01] MEDS: LISINOPRIL (5MG) 5 MG TABLET PO SCH (09:23)
[2022-12-01] MEDS: FINASTERIDE (5 MG) 5 MG TABLET GT SCH (09:24)
[2022-12-01] MEDS: ASCORBIC ACID 500 MG TABLET GT SCH (09:24)
[2022-12-01] MEDS: NEOMY SULF/BACITRAC ZN/POLY 15 GM TUBE TP SCH (09:27)
[2022-12-01] MEDS: LamoTRIgine 100 MG TABLET PO SCH ×2 (09:27→21:31)
[2022-12-01] MEDS: CLOBETASOL 0.05% OINT 30 GM TUBE TP SCH ×2 (09:27→16:25)
[2022-12-01] MEDS: PROSOURCE / PROSTAT (PYXIS) 30 ML UDC GT SCH ×3 (09:29→16:25)
[2022-12-01 10:47] LABS: BILIRUBIN,DIRECT 0.2 mg/dL (0.0-0.2); BILIRUBIN,TOTAL 0.6 mg/dL (0.2-1.0)
[2022-12-01 12:00] VITALS: BP 120/63
[2022-12-01] MEDS ORDERED: POTASSIUM CHLORIDE 20 MEQ POWDER PACKET NG SCH (12:00)
--- NOTE | 2022-12-01 15:30 | NUR ---
RECEIVED SPECIAL MATTRESS DELIVERED AND WAS PLACED ON PATIENT'S BED
[2022-12-01] MEDS: IV NS 0.9% 1,000 ML IV PRN (15:57)
[2022-12-01 16:00] VITALS: BP 131/71
--- NOTE | 2022-12-01 18:43 | NUR ---
MANAGER FOOD CLOSING NOTES: PATIENT [facility]ED [facility] WITH [facility]TINGS PRESCRIBED, TOLERATING IT WELL. NO SIGNS OF SOB OR RESPIRATORY DISTRESS NOTED THROUGHOUT SHIFT. PATIENT IS OBTUNDED, AT BEDSIDE. ON SR WITH HR OF 70 PER TELE MONITOR.. IV ACCESS ON LEFT UPPER ARM MIDLINE INTACT, INFUSING WITH NS @ 75 ML/HR, WITH NO S/S INFILTRATION NOTED. LEFT HAND SALINE LOCK IS INTACT, PATENT AND FLUSHES WELL. URINE DRAINING TO GRAVITY AND EMPTIED 1500 ML OF YELLOW COLORED URINE, NO HEMATURIA AND NO SEDIMENTATION NOTED. G-TUBE IN PLACE WITH JEVITY RUNNING ORDERED, TOLERATING WELL, WITH 10 ML OF GASTRIC RESIDUAL NOTED. ALL DUE MEDS GIVEN. ALL SAFETY MEASURES IMPLEMENTED. BED IN LOWEST POSITION, LOCKED, SIDE RAILS UP AND CALL LIGHT WITHIN REACH. WILL ENDORSE TO AM SHIFT NURSE FOR CONTINUITY OF CARE
--- NOTE | 2022-12-01 19:20 | NUR ---
RN NOTE PT RECEIVED IN BED, APPEARS TO BE COMFORTABLE. PT OBTUNDED. OPENS EYES WITH TACTILE STIMULI. CURRENT VENT SETTINGS WELL MERVAT. NO SOB, NO ACUTE RESP DISTRESS NOTED. AFEBRILE. CURRENTLY INFUSING NS AT 75ML/HR ON GLEN ML. GTF CURRENTLY RUNNING JEVITY 65ML/HR ORDERED. FC IN PLACED, SECURED AND PATENT, DRAINING CLEAR YELLOW URINE. HOB ELEVATED. FAMILY AT BEDSIDE. WILL CONT POC.
[2022-12-01 20:00] VITALS: BP 125/69
[2022-12-01] MEDS: DOCUSATE SODIUM 100 MG CAPSULE PO SCH (21:31)
[2022-12-01] MEDS: TAMSULOSIN 0.4 MG CAP.SR.24H GT SCH (21:31)
[2022-12-01] MEDS: ATORVASTATIN 40 MG TABLET GT SCH (21:33)
[2022-12-02] VITALS: BP 130/74
[2022-12-02] MEDS: VANCOMYCIN 1 GM in IV D5W 250ml IV SCH ×2 (00:37→23:13)
[2022-12-02] MEDS: ALBUTEROL FS 2.5 MG/3 ML VIAL.NEB NEB SCH ×4 (02:18→19:26)
[2022-12-02] MEDS: IPRATROPIUM NEB FS 0.5 MG/2.5 ML AMPUL.NEB NEB SCH ×4 (02:19→19:26)
[2022-12-02 04:00] VITALS: BP 141/76
[2022-12-02] MEDS: PIPERACILLIN /TAZOBACTAM 3.375 G in IV D5W 100 ML IV SCH ×3 (05:16→21:20)
[2022-12-02] MEDS: DILTIAZEM HCL 30 MG TABLET PO SCH ×4 (06:18→17:22)
[2022-12-02 06:50] LABS: CREATININE 0.8 mg/dL (0.6-1.3)
--- NOTE | 2022-12-02 07:30 | NUR ---
RN NOTE REMAINS IN STABLE CONDITION. NO SIGNIFICANT CHANGES NOTED. ALL NEEDS ANTICIPATED. ALL DUE MEDICATIONS GIVEN ORDERED. TURN/REPOS Q2H+PRN. KEPT PT CLEAN, DRY AND COMFORTABLE. WILL ENDORSE TO AM SHIFT.
--- NOTE | 2022-12-02 07:30 | NUR ---
TATTOO IDENTIFIER opening NOTES: Pt on bed. pt obtunded and nonverbal. [facility] WITH SETTINGS PRESCRIBED, TOLERATING WELL. on tele monitor. no signs of pain or discomfort at time.pt has left upper arm midline. iv intact, patent and flushing well. pt has pettit cathether with yellow colored urine,. on gtube no residual volume noted. all ALL SAFETY MEASURES IMPLEMENTED. BED IN LOWEST POSITION, LOCKED, SIDE RAILS UP x2 AND CALL LIGHT WITHIN REACH. bed alarm on
[2022-12-02 08:00] VITALS: BP 165/83
[2022-12-02] MEDS: ASCORBIC ACID 500 MG TABLET GT SCH (09:00)
[2022-12-02] MEDS: LEVETIRACETAM SOL (5 ML) 100 MG/ML UDC GT SCH ×2 (10:29→21:21)
[2022-12-02] MEDS: PANTOPRAZOLE 40 MG TABLET.DR PO SCH (10:29)
[2022-12-02] MEDS: ZINC SULFATE 220 MG CAPSULE GT SCH (10:30)
[2022-12-02] MEDS: LISINOPRIL (5MG) 5 MG TABLET PO SCH (10:30)
[2022-12-02] MEDS: METOPROLOL TARTRATE 25 MG TABLET GT SCH ×2 (10:31→21:22)
[2022-12-02] MEDS: FINASTERIDE (5 MG) 5 MG TABLET GT SCH (10:31)
[2022-12-02] MEDS: LamoTRIgine 100 MG TABLET PO SCH ×2 (10:32→21:21)
[2022-12-02] MEDS: ACETAMINOPHEN 650 MG/20.3 ML UDC GT SCH ×2 (10:32→16:16)
[2022-12-02] MEDS: PROSOURCE / PROSTAT (PYXIS) 30 ML UDC GT SCH ×3 (10:36→16:18)
[2022-12-02] MEDS: FUROSEMIDE 40 MG TABLET GT SCH ×2 (10:39→16:16)
[2022-12-02] MEDS: CLOBETASOL 0.05% OINT 30 GM TUBE TP SCH ×2 (10:40→16:13)
[2022-12-02] MEDS: NEOMY SULF/BACITRAC ZN/POLY 15 GM TUBE TP SCH (10:40)
[2022-12-02] MEDS: FERROUS SULFATE (325 MG) 325 MG/TAB TABLET GT SCH ×3 (10:43→16:16)
[2022-12-02] MEDS: IV NS 0.9% 1,000 ML IV PRN (11:13)
[2022-12-02 12:00] VITALS: BP 147/68
[2022-12-02] MEDS: JEVITY 1.2 CAL 1,000 ML BOTTLE GT SCH (13:21)
[2022-12-02 16:00] VITALS: BP 127/71
--- NOTE | 2022-12-02 18:26 | NUR ---
EDITOR PUBLICATIONS CLOSING NOTES: PAT[facility]ED [facility] WITH SETTINGS PRESCRIBED, TOLERATING IT WELL. NO SIGNS OF SOB OR RESPIRATORY DISTRESS NOTED THROUGHOUT SHIFT. PATIENT IS OBTUNDED, ON SR WITH HR OF 66 PER TELE MONITOR.. IV ACCESS ON LEFT UPPER ARM MIDLINE INTACT, INFUSING WITH NS @ 75 ML/HR, WITH NO S/S COMPLICATIONS NOTED. LEFT HAND SALINE LOCK IS INTACT, PATENT, URINE DRAINING TO GRAVITY AND EMPTIED 650 ML OF YELLOW COLORED URINE, NO HEMATURIA AND NO SEDIMENTATION OBSERVED. GTF RUNNING, TOLERATING WELL, NO OF GASTRIC RESIDUAL NOTED. ALL DUE MEDS GIVEN. TURNED AND REPOSITIONED FREQUENTLY TOLERATED FOR COMFORT AND CIRCULATION. ALL SAFETY MEASURES IMPLEMENTED. BED IN LOWEST POSITION, LOCKED, SIDE RAILS UP AND CALL LIGHT WITHIN REACH. WILL ENDORSE TO PM SHIFT NURSE FOR CONTINUITY OF CARE
[2022-12-02 20:00] VITALS: BP 132/57
[2022-12-02] MEDS ORDERED: LACT-209 GT (20:36)
[2022-12-02] MEDS ORDERED: PIPE3.379 IV (20:36)
[2022-12-02] MEDS ORDERED: VANC1VIA34 XX (20:36)
[2022-12-02] MEDS ORDERED: VANC1FRO2 IV (20:36)
[2022-12-02] MEDS ORDERED: PANT40TA49 PO (20:36)
[2022-12-02] MEDS ORDERED: Prosource GT (20:36)
[2022-12-02] MEDS ORDERED: ONDA4VIA23 GT (20:36)
[2022-12-02] MEDS ORDERED: Neomy Sulf/Bacitrac Zn/Poly TP (20:36)
[2022-12-02] MEDS: ATORVASTATIN 40 MG TABLET GT SCH (21:21)
[2022-12-02] MEDS: DOCUSATE SODIUM 100 MG CAPSULE PO SCH (21:21)
[2022-12-02] MEDS: TAMSULOSIN 0.4 MG CAP.SR.24H GT SCH (21:21)
[2022-12-03] VITALS: BP 120/65
[2022-12-03] MEDS: IV NS 0.9% 1,000 ML IV PRN (00:44)
[2022-12-03] MEDS: DILTIAZEM HCL 30 MG TABLET PO SCH ×4 (01:11→17:27)
[2022-12-03] MEDS: ALBUTEROL FS 2.5 MG/3 ML VIAL.NEB NEB SCH ×4 (02:33→19:51)
[2022-12-03] MEDS: IPRATROPIUM NEB FS 0.5 MG/2.5 ML AMPUL.NEB NEB SCH ×4 (02:33→19:50)
[2022-12-03 04:00] VITALS: BP 131/58
[2022-12-03] MEDS: PIPERACILLIN /TAZOBACTAM 3.375 G in IV D5W 100 ML IV SCH ×3 (04:47→20:44)
--- NOTE | 2022-12-03 06:00 | NUR ---
television maintenance man nurse Pts remain in bed asleep remain v/s stable afebrile vent sating 98%(no sob no distress noted , ivf ns at 125 cc/hr on progress will endorse to morning shift for continuity on care Addendum: 12/04/22 at 0555 by SHEREE MARKHAM RN IVF NS OF 75CC/HR NOT 125 (THOMAS Ibarra
[2022-12-03 06:45] LABS: CREATININE 0.9 mg/dL (0.6-1.3); POTASSIUM 3.8 mmol/L (3.5-5.1)
--- NOTE | 2022-12-03 07:30 | NUR ---
CENTRAL STERILE TECH opening NOTES: Pt on bed. pt obtunded and nonverbal. [facility] WITH [facility]TINGS PRESCRIBED, TOLERATING WELL. on tele monitor. no signs of pain or discomfort at time.pt has left upper arm midline. iv intact, patent and flushing well. pt has pettit cathether with yellow colored urine,. on gtube no residual volume noted. all ALL SAFETY MEASURES IMPLEMENTED. BED IN LOWEST POSITION, LOCKED, SIDE RAILS UP x2 AND CALL LIGHT WITHIN REACH. bed alarm on
[2022-12-03 08:00] VITALS: BP 128/76
[2022-12-03] MEDS: FINASTERIDE (5 MG) 5 MG TABLET GT SCH (08:58)
[2022-12-03] MEDS: PROSOURCE / PROSTAT (PYXIS) 30 ML UDC GT SCH ×3 (08:58→16:22)
[2022-12-03] MEDS: LEVETIRACETAM SOL (5 ML) 100 MG/ML UDC GT SCH ×2 (08:58→20:37)
[2022-12-03] MEDS: METOPROLOL TARTRATE 25 MG TABLET GT SCH ×2 (08:59→20:40)
[2022-12-03] MEDS: FUROSEMIDE 40 MG TABLET GT SCH ×2 (08:59→16:04)
[2022-12-03] MEDS: FERROUS SULFATE (325 MG) 325 MG/TAB TABLET GT SCH ×3 (09:00→16:05)
[2022-12-03] MEDS: ASCORBIC ACID 500 MG TABLET GT SCH (09:01)
[2022-12-03] MEDS: LISINOPRIL (5MG) 5 MG TABLET PO SCH (09:02)
[2022-12-03] MEDS: PANTOPRAZOLE 40 MG/PACK PACK NG SCH (09:14)
[2022-12-03] MEDS: ZINC SULFATE 220 MG CAPSULE GT SCH (09:14)
[2022-12-03] MEDS: LamoTRIgine 100 MG TABLET PO SCH ×2 (09:15→20:44)
[2022-12-03] MEDS: ACETAMINOPHEN 650 MG/20.3 ML UDC GT SCH ×2 (09:15→16:05)
[2022-12-03] MEDS: NEOMY SULF/BACITRAC ZN/POLY 15 GM TUBE TP SCH (09:26)
[2022-12-03] MEDS: CLOBETASOL 0.05% OINT 30 GM TUBE TP SCH ×2 (09:26→16:05)
[2022-12-03] MEDS: JEVITY 1.2 CAL 1,000 ML BOTTLE GT SCH (11:22)
[2022-12-03 12:00] VITALS: BP 126/70
[2022-12-03] MEDS: CIPROFLOXACIN HCL 0.3% 5 ML BOTTLE EACHEYE SCH ×3 (14:58→20:37)
[2022-12-03 16:00] VITALS: BP 130/69
--- NOTE | 2022-12-03 16:57 | NUR ---
RN note took out Keppra tablet by mistake, instead of Lamictal, notified pharmacy, returned Keppra 500 mg 2 tabs to pharmacy and took out Lamictal per order
--- NOTE | 2022-12-03 18:08 | NUR ---
spoke with REAGAN Pedersen from [facility] re: Ciclopirox, as per Elsie, they discarded the meds already, pharm aware and to inform Dr. Roth if it can be dcd. left message to Dr. Roth.
--- NOTE | 2022-12-03 18:31 | NUR ---
CALL OR CONTACT CENTRE TEAM LEADER CLOSING NOTES: PATIENT ON BED ON [facility] VENT WITH SETTINGS ORDERED. TOLERATING IT WELL. NO SIGNS OF SOB OR RESPIRATORY DISTRESS NOTED THROUGHOUT SHIFT. PATIENT IS OBTUNDED, ON SR WITH HR OF 66 PER TELE MONITOR.. IV ACCESS ON LEFT UPPER ARM MIDLINE INTACT, INFUSING WITH NS @ 75 ML/HR, WITH NO S/S COMPLICATIONS NOTED. LEFT HAND SALINE LOCK IS INTACT, PATENT, URINE DRAINING TO GRAVITY OF YELLOW COLORED URINE, NO HEMATURIA AND NO SEDIMENTATION OBSERVED. GTF RUNNING, TOLERATING WELL, WITH 5CC RESIDUAL, NO NAUSEA AND VOMITTING. ALL DUE MEDS GIVEN. TURNED AND REPOSITIONED FREQUENTLY TOLERATED FOR COMFORT AND CIRCULATION. ALL SAFETY MEASURES IMPLEMENTED. BED IN LOWEST POSITION, LOCKED, SIDE RAILS UP AND CALL LIGHT WITHIN REACH. WILL ENDORSE TO PM SHIFT NURSE FOR CONTINUITY OF CARE
--- NOTE | 2022-12-03 19:20 | NUR ---
UNISAW OPERATOR CLOSING NOTES: PATIENT ON BED ON [facility] VENT WITH SETTINGS PRESCRIBED, TOLERATING IT WELL. NO SIGNS OF SOB OR RESPIRATORY DISTRESS NOTED THROUGHOUT SHIFT. PATIENT IS OBTUNDED, ON SR WITH HR OF 66 PER TELE MONITOR..IV ACCESS ON LEFT UPPER ARM MIDLINE INTACT, INFUSING WITH NS @ 75 ML/HR, WITH NO S/S COMPLICATIONS NOTED. LEFT HAND SALINE LOCK IS INTACT, PATENT, URINE DRAINING TO GRAVITY AND EMPTIED ML OF YELLOW COLORED URINE, NO HEMATURIA AND NO SEDIMENTATION OBSERVED. GTF RUNNING, TOLERATING WELL, NO OF GASTRIC RESIDUAL NOTED. ALL DUE MEDS GIVEN. TURNED AND REPOSITIONED FREQUENTLY TOLERATED FOR COMFORT AND CIRCULATION. ALL SAFETY MEASURES IMPLEMENTED. BED IN LOWEST POSITION, LOCKED, SIDE RAILS UP AND CALL LIGHT WITHIN REACH. WILL ENDORSE TO PM SHIFT NURSE FOR CONTINUITY OF CARE Addendum: 12/03/22 at 1929 by FRANCISCO J SERRATO RN disregard this note.
[2022-12-03 20:00] VITALS: BP 128/68
--- NOTE | 2022-12-03 20:00 | NUR ---
DOUGH MIXER opening NOTES: RECEIVED Pt on bed. pt obtunded and nonverbal. ON MECH VENT WITH SETTINGS PRESCRIBED, TOLERATING WELL. on tele monitor. no signs of pain or discomfort at time.pt has left upper arm midline. iv intact, patent and flushing well. pt has pettit cathether with yellow colored urine,. on gtube JEVITY AT 65CC/HR no residual volume noted. HOB ELEVATED AT ALL TIMES TURNED AND REPOSITION AN SUCTION SECRETION PRN. ALL SAFETY MEASURES IMPLEMENTED. BED IN LOWEST POSITION, LOCKED, SIDE RAILS UP x2 AND CALL LIGHT WITHIN REACH. BED ALARM ON WILL ENDORSE TO RN DAY SHIFT FOR CONTINUITY OF CARE
[2022-12-03] MEDS: TAMSULOSIN 0.4 MG CAP.SR.24H GT SCH (21:01)
[2022-12-03] MEDS: ATORVASTATIN 40 MG TABLET GT SCH (21:01)
[2022-12-03] MEDS: DOCUSATE SODIUM 100 MG CAPSULE PO SCH (21:01)
[2022-12-04] VITALS: BP_SYST 136; BP_SYST 2; BP_DIAS 0; BP_DIAS 69
[2022-12-04] MEDS: VANCOMYCIN 1 GM in IV D5W 250ml IV SCH ×2 (00:30→22:01)
[2022-12-04] MEDS: DILTIAZEM HCL 30 MG TABLET PO SCH ×4 (00:34→17:11)
[2022-12-04] MEDS: IV NS 0.9% 1,000 ML IV PRN ×2 (00:43→18:04)
[2022-12-04] MEDS: IPRATROPIUM NEB FS 0.5 MG/2.5 ML AMPUL.NEB NEB SCH ×4 (01:27→19:57)
[2022-12-04] MEDS: ALBUTEROL FS 2.5 MG/3 ML VIAL.NEB NEB SCH ×4 (01:27→19:57)
[2022-12-04 04:00] VITALS: BP 140/70
[2022-12-04] MEDS: PIPERACILLIN /TAZOBACTAM 3.375 G in IV D5W 100 ML IV SCH ×2 (04:26→12:14)
[2022-12-04 06:12] LABS: BASOPHILS # (AUTO) 0.1 K/uL (0.0-0.2); BASOPHILS % (AUTO) 0.8 % (0.0-2.0); EOSINOPHILS % (AUTO) 12.2 % (0.0-6.0); HEMATOCRIT 24 % (39-51); HEMOGLOBIN 7.8 g/dL (13.5-17.5); LYMPHOCYTES # (AUTO) 2.4 K/uL (0.8-4.8); MEAN CORPUSCULAR HGB CONC 33 g/dl (31.0-36.0); MEAN CORPUSCULAR VOLUME 92 fL (80-96); MONOCYTES # (AUTO) 0.9 K/uL (0.1-1.30); MONOCYTES % (AUTO) 5.6 % (2.0-12.0); NEUTROPHILS # (AUTO) 10.6 K/uL (1.8-8.9); NEUTROPHILS % (AUTO) 66.4 % (43.0-81.0); PLATELET COUNT (AUTO) 436 K/uL (150-450); RED BLOOD CELL COUNT(AUTO) 2.59 MIL/uL (4.5-6.0); WHITE BLOOD COUNT (AUTO) 15.9 K/uL (4.3-11.0)
[2022-12-04 06:34] LABS: CALCIUM, SERUM 9.2 mg/dL (8.5-10.1); CREATININE 0.9 mg/dL (0.6-1.3); MAGNESIUM 2.1 mg/dL (1.8-2.4); PHOSPHORUS 3.2 mg/dL (2.5-4.9); POTASSIUM 3.8 mmol/L (3.5-5.1)
--- NOTE | 2022-12-04 07:23 | NUR ---
RN OPENING NOTE RECEIVED PT IN BED. PT OBTUNDED AND NONVERBAL. PT ON TELE MONITOR. PT ON MECHANICAL VENT WITH SETTINGS PRESCRIBED, TOLERATING WELL. NO PAIN OR DISCOMFORT AT THIS TIME. PT HAS LEFT UPPER ARM MIDLINE. IV INTACT, PATENT AND FLUSHING WELL. TRINH CATHETHER WITH YELLOW COLORED URINE.ON GTUBE WITH NO RESIDUAL VOLUME NOTED. ALL SAFETY MEASURES IN PLACE. BED IN LOWEST POSITION, LOCKED, SIDE RAILS UP x2 AND CALL LIGHT WITHIN REACH. BED ALARM ON.
[2022-12-04 08:00] VITALS: BP 142/72
[2022-12-04 08:55] LABS: ABG BASE EXCESS 4.1 mmol/L; ABG OXYGEN SATURATION 97.1 % (92.0-98.5); ABG PCO2 40.1 mmHg (35.0-45.0); ABG PH 7.465 (7.350-7.450); AaDO2 74.8 mmHg; COHb 0.3 % (0.5-1.5); MetHb 0.2 % (0.0-1.5); O2Hb 96.6 % (94.0-97.0); PEEP,BG 5 cm H2O; SITE, ABG Right Radial; VT, ABG 500 mL
[2022-12-04] MEDS: LEVETIRACETAM SOL (5 ML) 100 MG/ML UDC GT SCH ×2 (09:03→20:32)
[2022-12-04] MEDS: FERROUS SULFATE (325 MG) 325 MG/TAB TABLET GT SCH ×3 (09:03→17:10)
[2022-12-04] MEDS: ZINC SULFATE 220 MG CAPSULE GT SCH (09:04)
[2022-12-04] MEDS: ACETAMINOPHEN 650 MG/20.3 ML UDC GT SCH ×2 (09:04→17:11)
[2022-12-04] MEDS: PANTOPRAZOLE 40 MG/PACK PACK NG SCH (09:04)
[2022-12-04] MEDS: FINASTERIDE (5 MG) 5 MG TABLET GT SCH (09:04)
[2022-12-04] MEDS: ASCORBIC ACID 500 MG TABLET GT SCH (09:04)
[2022-12-04] MEDS: LamoTRIgine 100 MG TABLET PO SCH ×2 (09:04→20:32)
[2022-12-04] MEDS: FUROSEMIDE 40 MG TABLET GT SCH ×2 (09:04→17:10)
[2022-12-04] MEDS: PROSOURCE / PROSTAT (PYXIS) 30 ML UDC GT SCH ×3 (09:04→17:15)
[2022-12-04] MEDS: METOPROLOL TARTRATE 25 MG TABLET GT SCH ×2 (09:07→20:33)
[2022-12-04] MEDS: LISINOPRIL (5MG) 5 MG TABLET PO SCH (09:07)
[2022-12-04] MEDS: NEOMY SULF/BACITRAC ZN/POLY 15 GM TUBE TP SCH (09:31)
[2022-12-04] MEDS: CLOBETASOL 0.05% OINT 30 GM TUBE TP SCH ×2 (09:31→17:54)
[2022-12-04] MEDS: CIPROFLOXACIN HCL 0.3% 5 ML BOTTLE EACHEYE SCH ×4 (09:49→20:32)
[2022-12-04 10:54] LABS: EOSINOPHILS % (MANUAL) 9 % (0-4); LYMPHOCYTES % (MANUAL) 15 % (16-48); MONOCYTES % (MANUAL) 10 % (0-11.0); NEUTROPHILS % (MANUAL) 66 (42-76)
--- NOTE | 2022-12-04 11:12 | NUR ---
vent changes below per dr. bartholomew: VT 525 ML RN AWARE ON VENT CHANGES MADE Addendum: 12/04/22 at 1115 by AKHIL RIVERA RT Amended: Links added.
[2022-12-04 12:00] VITALS: BP 127/68
[2022-12-04] MEDS: JEVITY 1.2 CAL 1,000 ML BOTTLE GT SCH (12:17)
[2022-12-04] MEDS ORDERED: CEFEPIME 2 GM in IV D5W 100 ML IV SCH (15:00)
[2022-12-04 16:00] VITALS: BP 126/71
--- NOTE | 2022-12-04 19:30 | NUR ---
PROFESSOR OF COMMUNICATION AND WRITING OPENING NOTE RECEIVED PT IN BED. PT A/O X0, OBTUNDED, NONVERBAL, OPENS EYES. ON MECHANICAL VENT WITH SETTINGS PRESCRIBED, TOLERATING WELL. ON TELE MONITOR SHOWING SR 74. NO PAIN OR DISCOMFORT NOTED AT THIS TIME. IV ACCESS GLEN MIDLINE, INTACT, PATENT, FLUSHING WELL, INFUSING NS @ 75 ML/HR. TRINH CATHETER INTACT WITH YELLOW COLORED URINE NOTED. GTUBE INTACT, PLACEMENT CONFIRMED, NO SIGNS OF LEAKAGE, WITH FEEDING OF JEVITY 1.2 @ 65 ML/HR X 24 HR. ALL SAFETY MEASURES IN PLACE: BED IN LOWEST POSITION, LOCKED, SIDE RAILS UP x4, BED ALARM ON, CALL LIGHT WITHIN REACH. WILL CONTINUE TO MONITOR AND ASSIST.
--- NOTE | 2022-12-04 19:32 | NUR ---
FORMING FIXER CLOSING NOTE PT IN BED. PT OBTUNDED AND NONVERBAL. PT ON TELE MONITOR. PT ON MECHANICAL VENT WITH SETTINGS PRESCRIBED, TOLERATING WELL. NO PAIN OR DISCOMFORT AT THIS TIME. PT HAS LEFT UPPER ARM MIDLINE. IV INTACT, PATENT AND FLUSHING WELL. TRINH CATHETER WITH YELLOW COLORED URINE.ON GTUBE WITH NO RESIDUAL VOLUME NOTED. NO SIGNS OF LEAKAGE. TURNED AND REPOSITIONED. KEPT CLEAN AND DRY. ALL SAFETY MEASURES IN PLACE. BED IN LOWEST POSITION, LOCKED, SIDE RAILS UP x2 AND CALL LIGHT WITHIN REACH. BED ALARM ON.ENDORSED TO SAS ARCHITECT RN FOR CONUTITY OF CARE
[2022-12-04 20:00] VITALS: BP 131/72
[2022-12-04] MEDS: CEFEPIME 2 GM in IV D5W 100 ML IV SCH (20:02)
[2022-12-04] MEDS: TAMSULOSIN 0.4 MG CAP.SR.24H GT SCH (21:59)
[2022-12-04] MEDS: ATORVASTATIN 40 MG TABLET GT SCH (21:59)
[2022-12-04] MEDS: DOCUSATE SODIUM 100 MG CAPSULE PO SCH (21:59)
[2022-12-05] VITALS: BP 129/66
[2022-12-05] MEDS: DILTIAZEM HCL 30 MG TABLET PO SCH ×4 (00:32→17:03)
[2022-12-05] MEDS: IPRATROPIUM NEB FS 0.5 MG/2.5 ML AMPUL.NEB NEB SCH ×4 (01:54→19:55)
[2022-12-05] MEDS: ALBUTEROL FS 2.5 MG/3 ML VIAL.NEB NEB SCH ×4 (01:54→19:55)
[2022-12-05] MEDS: CEFEPIME 2 GM in IV D5W 100 ML IV SCH ×3 (03:19→22:11)
[2022-12-05 04:00] VITALS: BP 135/73
[2022-12-05 06:05] LABS: BASOPHILS # (AUTO) 0.1 K/uL (0.0-0.2); BASOPHILS % (AUTO) 0.9 % (0.0-2.0); EOSINOPHILS % (AUTO) 9.8 % (0.0-6.0); HEMATOCRIT 27 % (39-51); HEMOGLOBIN 8.7 g/dL (13.5-17.5); LYMPHOCYTES # (AUTO) 1.5 K/uL (0.8-4.8); MEAN CORPUSCULAR HGB CONC 33 g/dl (31.0-36.0); MEAN CORPUSCULAR VOLUME 92 fL (80-96); MONOCYTES # (AUTO) 0.7 K/uL (0.1-1.30); MONOCYTES % (AUTO) 7.3 % (2.0-12.0); NEUTROPHILS # (AUTO) 6.2 K/uL (1.8-8.9); PLATELET COUNT (AUTO) 397 K/uL (150-450); RED BLOOD CELL COUNT(AUTO) 2.87 MIL/uL (4.5-6.0); WHITE BLOOD COUNT (AUTO) 9.4 K/uL (4.3-11.0)
[2022-12-05 06:14] LABS: CALCIUM, SERUM 9.3 mg/dL (8.5-10.1); CREATININE 0.9 mg/dL (0.6-1.3); MAGNESIUM 2.1 mg/dL (1.8-2.4); PHOSPHORUS 3.4 mg/dL (2.5-4.9); POTASSIUM 3.7 mmol/L (3.5-5.1)
--- NOTE | 2022-12-05 07:05 | NUR ---
FAMILY SERVICES SPECIALIST CLOSING NOTE PT IN BED AT THIS TIME, A/O X0, OBTUNDED, NONVERBAL, OPENS EYES. ON MECHANICAL VENT WITH SETTINGS PRESCRIBED, TOLERATING WELL. ON TELE MONITOR SHOWING SR WITH BBB, 78 HR. NO PAIN OR DISCOMFORT NOTED AT THIS TIME. IV ACCESS GLEN MIDLINE, INTACT, PATENT, FLUSHING WELL, INFUSING NS @ 75 ML/HR. TRINH CATHETER INTACT WITH YELLOW COLORED URINE NOTED. GTUBE INTACT, PLACEMENT CONFIRMED, NO SIGNS OF LEAKAGE, WITH FEEDING OF JEVITY 1.2 @ 65 ML/HR X 24 HR. ALL CARE PROVIDED AND MEDS TOLERATED WELL. ALL SAFETY MEASURES MAINTAINED: BED IN LOWEST POSITION, LOCKED, SIDE RAILS UP x4, BED ALARM ON, CALL LIGHT WITHIN REACH. WILL ENDORSE ABHINAV TO DAY SHIFT NURSE.
--- NOTE | 2022-12-05 07:08 | NUR ---
SHELLACKER OPENING NOTES RECEIVED PATIENT RESTING IN BED, NON-VERBAL, ON TRACH VENT, NO S/S OF RESPIRATORY DISTRESS OR DISCOMFORT. PATIENT OPENS EYES TO VERBAL AND TACTILE STIMULI. ON TELE MONITORING SHOW SINUS RHYTHM HR 79 W/ BBB, NO S/S OF CARDIAC DISTRESS OR DISCOMFORT. IV ACCESS GLEN MIDLINE RUNNING NS @75 ML/HR. INTACT AND PATENT. PATIENT ON G-TUBE FEEDING JEVITY 1.2 @65 CC/HR TOLERATING WELL. SKIN ISSUES: SACRAL WOUND, HEEL WOUND, R EARLOBE DRESSINGS IN PLACE. SAFETY MEASURES IN PLACE: BED LOCKED AND IN LOWEST POSITION, HOB ELEVATED, SIDE RAILS UPx2, CALL LIGHT WITHIN REACH. WILL CONTINUE TO MONITOR.
[2022-12-05 08:00] VITALS: BP 119/60
[2022-12-05] MEDS: PANTOPRAZOLE 40 MG/PACK PACK NG SCH (08:34)
[2022-12-05] MEDS: LEVETIRACETAM SOL (5 ML) 100 MG/ML UDC GT SCH ×2 (08:34→22:09)
[2022-12-05] MEDS: ACETAMINOPHEN 650 MG/20.3 ML UDC GT SCH ×2 (08:34→17:03)
[2022-12-05] MEDS: CIPROFLOXACIN HCL 0.3% 5 ML BOTTLE EACHEYE SCH ×4 (08:34→22:14)
[2022-12-05] MEDS: LamoTRIgine 100 MG TABLET PO SCH ×2 (08:35→22:10)
[2022-12-05] MEDS: FERROUS SULFATE (325 MG) 325 MG/TAB TABLET GT SCH ×3 (08:35→17:02)
[2022-12-05] MEDS: ZINC SULFATE 220 MG CAPSULE GT SCH (08:35)
[2022-12-05] MEDS: FUROSEMIDE 40 MG TABLET GT SCH ×2 (08:35→17:02)
[2022-12-05] MEDS: ASCORBIC ACID 500 MG TABLET GT SCH (08:35)
[2022-12-05] MEDS: FINASTERIDE (5 MG) 5 MG TABLET GT SCH (08:35)
[2022-12-05] MEDS: METOPROLOL TARTRATE 25 MG TABLET GT SCH ×2 (08:36→22:09)
[2022-12-05] MEDS: LISINOPRIL (5MG) 5 MG TABLET PO SCH (08:36)
[2022-12-05] MEDS: NEOMY SULF/BACITRAC ZN/POLY 15 GM TUBE TP SCH (08:37)
[2022-12-05] MEDS: CLOBETASOL 0.05% OINT 30 GM TUBE TP SCH ×2 (08:37→17:03)
[2022-12-05] MEDS: PROSOURCE / PROSTAT (PYXIS) 30 ML UDC GT SCH ×3 (08:38→17:03)
[2022-12-05] MEDS: IV NS 0.9% 1,000 ML IV PRN (10:08)
[2022-12-05 12:17] VITALS: BP 118/66
[2022-12-05] MEDS ORDERED: CEFE2FRO IV (14:26)
[2022-12-05] MEDS ORDERED: ONDANSETRON HCL/PF 4 MG/2 ML VIAL ONE ×2 (15:27→16:42)
[2022-12-05 16:03] VITALS: BP 114/63
[2022-12-05] MEDS: JEVITY 1.2 CAL 1,000 ML BOTTLE GT SCH (18:00)
--- NOTE | 2022-12-05 18:40 | NUR ---
AIRCRAFT MAINTENANCE INSTRUCTOR CLOSING NOTES PATIENT RESTING IN BED, NON-VERBAL, STABLE ON TRACH VENT, NO S/S OF RESPIRATORY DISTRESS OR DISCOMFORT. PATIENT OPENS EYES TO VERBAL AND TACTILE STIMULI. ON TELE MONITORING SHOW SINUS RHYTHM HR 75 W/ BBB, NO S/S OF CARDIAC DISTRESS OR DISCOMFORT. IV ACCESS GLEN MIDLINE RUNNING NS @75 ML/HR. INTACT AND PATENT. PATIENT ON G-TUBE FEEDING JEVITY 1.2 @65 CC/HR TOLERATING WELL. SKIN ISSUES: SACRAL WOUND, HEEL WOUND, R EARLOBE DRESSINGS IN PLACE. ALL DUE MEDICATION ADMINISTERED. SAFETY MEASURES MAINTAINED: BED LOCKED AND IN LOWEST POSITION, HOB ELEVATED, SIDE RAILS UPx2, CALL LIGHT WITHIN REACH. WILL ENDORSE TO NEXT SHIFT ANY ABHINAV.
--- NOTE | 2022-12-05 19:40 | NUR ---
[employer] SPECIAL EDUCATION TEACHER OPENING NOTES RECEIVED PATIENT RESTING IN BED, NON-VERBAL, STABLE ON TRACH VENT, NO S/S OF RESPIRATORY DISTRESS OR DISCOMFORT. PATIENT OPENS EYES TO VERBAL AND TACTILE STIMULI. ON TELE MONITORING SHOW SINUS RHYTHM HR 75 W/ BBB. NO S/S OF CARDIAC DISTRESS OR DISCOMFORT. IV ACCESS GLEN MIDLINE RUNNING NS @75 ML/HR. INTACT AND PATENT. PATIENT ON G-TUBE FEEDING JEVITY 1.2 @65 CC/HR TOLERATING WELL. ON TRINH CATHERTER DRAINING YELLOW COLOR URINE. SAFETY MEASURES MAINTAINED: BED LOCKED AND IN LOWEST POSITION, HOB ELEVATED, SIDE RAILS UPx2, CALL LIGHT WITHIN REACH. WILL CONTINUE TO MONITOR THE PATIENT.
[2022-12-05 20:00] VITALS: BP 147/90
[2022-12-05] MEDS: DOCUSATE SODIUM 100 MG CAPSULE PO SCH (22:10)
[2022-12-05] MEDS: ATORVASTATIN 40 MG TABLET GT SCH (22:10)
[2022-12-05] MEDS: TAMSULOSIN 0.4 MG CAP.SR.24H GT SCH (22:10)
[2022-12-05] MEDS: VANCOMYCIN 1 GM in IV D5W 250ml IV SCH (23:16)
[2022-12-06] VITALS: BP 142/84
[2022-12-06] MEDS: DILTIAZEM HCL 30 MG TABLET PO SCH ×3 (00:51→12:24)
[2022-12-06] MEDS: ALBUTEROL FS 2.5 MG/3 ML VIAL.NEB NEB SCH ×3 (01:29→12:40)
[2022-12-06] MEDS: IPRATROPIUM NEB FS 0.5 MG/2.5 ML AMPUL.NEB NEB SCH ×3 (01:29→12:40)
[2022-12-06 04:00] VITALS: BP 141/68
[2022-12-06] MEDS: CEFEPIME 2 GM in IV D5W 100 ML IV SCH ×2 (04:08→12:02)
--- NOTE | 2022-12-06 07:00 | NUR ---
SUPERVISOR COATING CLOSING NOTES PATIENT RESTING IN BED, NON-VERBAL, STABLE ON TRACH VENT, NO S/S OF RESPIRATORY DISTRESS OR DISCOMFORT. PATIENT OPENS EYES TO VERBAL AND TACTILE STIMULI. ON TELE MONITORING SHOW SINUS RHYTHM HR 82 W/ BBB. NO S/S OF CARDIAC DISTRESS OR DISCOMFORT. IV ACCESS GLEN MIDLINE RUNNING NS @75 ML/HR. INTACT AND PATENT. PATIENT ON G-TUBE FEEDING JEVITY 1.2 @65 CC/HR TOLERATING WELL. ON TRINH CATHERTER DRAINED 1,100CC YELLOW COLORED URINE. SAFETY MEASURES MAINTAINED: BED LOCKED AND IN LOWEST POSITION, HOB ELEVATED, SIDE RAILS UPx2, CALL LIGHT WITHIN REACH. WILL ENDORSE TO THE NEXT SHIFT.
[2022-12-06 08:00] VITALS: BP 131/77
--- NOTE | 2022-12-06 08:00 | NUR ---
PATTERN CHECKER NOTE RECEIVED PATIENT IN BED, AWAKE AND WITH OPEN EYES, WITH TRACH TUBE INSERTED ORDERED, HE IS ON TELE MONITOR SETTING 85. PATIENT HAS G-TUBE FEEDING TOLERATING WELL, NO RESIDUAL NOTED. LEFT UPPER ARM NS AT 75 ML/HR IV INTACT AND WELL, MOUTH CARE PROVIDED. KEEP HEAD OF BED ELEVATED, BED IN LOWEST LOCKED POSITION, CALL LIGHT WITHIN REACH, WILL CONTINUE TO MONITOR.
[2022-12-06] MEDS: ACETAMINOPHEN 650 MG/20.3 ML UDC GT SCH ×2 (08:48→16:27)
[2022-12-06] MEDS: FUROSEMIDE 40 MG TABLET GT SCH ×2 (08:49→16:22)
[2022-12-06] MEDS: LEVETIRACETAM SOL (5 ML) 100 MG/ML UDC GT SCH (08:49)
[2022-12-06] MEDS: PANTOPRAZOLE 40 MG/PACK PACK NG SCH (08:49)
[2022-12-06] MEDS: FERROUS SULFATE (325 MG) 325 MG/TAB TABLET GT SCH ×3 (08:49→16:27)
[2022-12-06] MEDS: FINASTERIDE (5 MG) 5 MG TABLET GT SCH (08:49)
[2022-12-06] MEDS: ZINC SULFATE 220 MG CAPSULE GT SCH (08:49)
[2022-12-06] MEDS: PROSOURCE / PROSTAT (PYXIS) 30 ML UDC GT SCH ×3 (08:49→16:27)
[2022-12-06] MEDS: LISINOPRIL (5MG) 5 MG TABLET PO SCH (08:50)
[2022-12-06] MEDS: ASCORBIC ACID 500 MG TABLET GT SCH (08:51)
[2022-12-06] MEDS: METOPROLOL TARTRATE 25 MG TABLET GT SCH (08:51)
[2022-12-06] MEDS: LamoTRIgine 100 MG TABLET PO SCH (08:51)
[2022-12-06] MEDS: CLOBETASOL 0.05% OINT 30 GM TUBE TP SCH ×2 (09:00→16:30)
[2022-12-06] MEDS: NEOMY SULF/BACITRAC ZN/POLY 15 GM TUBE TP SCH (09:27)
[2022-12-06] MEDS: CIPROFLOXACIN HCL 0.3% 5 ML BOTTLE EACHEYE SCH ×3 (09:28→16:28)
--- NOTE | 2022-12-06 10:28 | NUR ---
television maintenance man notes EYE OINTMENT NOT AVAILABLE AT THIS TIME. CALLED [facility] TWICE, WILL BRING SOON.
--- NOTE | 2022-12-06 10:31 | NUR ---
CITY BUS DRIVER NOTE CALLED [facility], REPORT GIVEN TO WINDY SIGALA RN.
--- NOTE | 2022-12-06 10:35 | NUR ---
BOILERMAKER'S ASSISTANT NOTES NO CONTACT OR FAMILY MEMBERS INFORMATION ON CHART. UNABLE TO INFORM FAMILY THAT PATIENT WILL BE TRANSFERRING TO [facility] [[email or web address] AND REHAB.
--- NOTE | 2022-12-06 11:34 | NUR ---
rn telemetry note doctor ferny called .updated patient condition, ok to discharge to nursing home facility.
[2022-12-06 12:00] VITALS: BP 135/60
--- NOTE | 2022-12-06 14:48 | NUR ---
OUTSIDE SALES MANAGER NOTE PATIENT WAS GIVEN DISCHARGE INSTRUCTIONS, PATIENT VERBALIZED UNDERSTANDINGS. TELEMETRY BOX REMOVED, HEP LOCK REMOVED, DRY DRESSING APPLIED, NO BLEEDING. INSTRUCTED HIM HOW TO TAKE NEW MEDICATIONS AND POSSIBLE SIDE EFFECTS. INSTRUCTED HIM TO FOLLOW UP WITH PCP, VERBALIZED UNDERSTANDING. BELONGING CHECKED BY CLAUDIA. AWAITING FOR FRIEND TO PICK HIM UP. Addendum: 12/06/22 at 1556 by GENARO PARDO RN wrong chart wrong entry
--- NOTE | 2022-12-06 15:00 | NUR ---
telegraph service clerk note called to snf, spoke with rn ,report given
[2022-12-06 16:00] VITALS: BP 135/60
[2022-12-06 16:18] VITALS: BP 104/65
--- NOTE | 2022-12-06 16:55 | NUR ---
telemarketing manager note ambulance arrived report given r tele removed , taken to snf with stable condition,ok to leave mid line for furtherer atb at snf
== END 2022-12-06 16:55 | DRG 870 ==
LOC: ER 02:01 → TELE1 03:00
PROVIDERS: ADMIT Internal Medicine; ATTEND Internal Medicine
PROC: 5A1955Z Respiratory Ventilation, Greater than 96 Consecutive Hours (ICD-10-PCS; principal; 2022-11-27)
PROC: 05H633Z Insertion of Infusion Device into Left Subclavian Vein, Percutaneous Approach (ICD-10-PCS; 2022-11-28)
PROC: B547ZZA Ultrasonography of Left Subclavian Vein, Guidance (ICD-10-PCS; 2022-11-28)
PROC: 30233N1 Transfusion of Nonautologous Red Blood Cells into Peripheral Vein, Percutaneous Approach (ICD-10-PCS; 2022-11-28)
DX: A41.9 Sepsis, unspecified organism (principal); J69.0 Pneumonitis due to inhalation of food and vomit; E43 Unspecified severe protein-calorie malnutrition; G93.41 Metabolic encephalopathy; J96.21 Acute and chronic respiratory failure with hypoxia; N17.0 Acute kidney failure with tubular necrosis; J15.6 Pneumonia due to other Gram-negative bacteria; R53.2 Functional quadriplegia; J95.851 Ventilator associated pneumonia; N39.0 Urinary tract infection, site not specified; I50.32 Chronic diastolic (congestive) heart failure; Z99.11 Dependence on respirator [ventilator] status; D68.69 Other thrombophilia; E87.20 Acidosis, unspecified; I13.0 Hypertensive heart and chronic kidney disease with heart failure and stage 1 through stage 4 chronic kidney disease, or unspecified chronic kidney disease; D62 Acute posthemorrhagic anemia; E87.5 Hyperkalemia; D50.9 Iron deficiency anemia, unspecified; E86.0 Dehydration; E87.6 Hypokalemia; E88.09 Other disorders of plasma-protein metabolism, not elsewhere classified; G40.909 Epilepsy, unspecified, not intractable, without status epilepticus; Z93.0 Tracheostomy status; R13.10 Dysphagia, unspecified; N40.0 Benign prostatic hyperplasia without lower urinary tract symptoms; Z20.822 Contact with and (suspected) exposure to COVID-19; Z93.1 Gastrostomy status; L89.626 Pressure-induced deep tissue damage of left heel; L89.616 Pressure-induced deep tissue damage of right heel; Z86.73 Personal history of transient ischemic attack (TIA), and cerebral infarction without residual deficits; M24.561 Contracture, right knee; M24.562 Contracture, left knee; N18.9 Chronic kidney disease, unspecified; B96.5 Pseudomonas (aeruginosa) (mallei) (pseudomallei) as the cause of diseases classified elsewhere; K21.9 Gastro-esophageal reflux disease without esophagitis; Y83.3 Surgical operation with formation of external stoma as the cause of abnormal reaction of the patient, or of later complication, without mention of misadventure at the time of the procedure; Y92.129 Unspecified place in nursing home as the place of occurrence of the external cause
CPT/HCPCS: 31720; 36410; 36415; 36600; 71045-TC; 76770-TC; 80048-TC; 80053-TC; 80076-TC; 80202-TC; 81001; 82247-TC; 82248-TC; 82272-TC; 82803-TC; 82962-TC; 83605-TC; 83690-TC; 83735-TC; 84100-TC; 84484-TC; 85025-TC; 85730-TC; 86850-TC; 87040-TC; 87081-TC; 87086-TC; 94003-TC; 94760-TC; 94762-TC; 94799-TC; 99082-TC; A4223; A4623; A6403; A7526; G0378; J0456; J0692; J0696; J1644; J1650; J1953; J2405; J2543; J3370; J7030; J7050; J7060; P9016

== ENCOUNTER 2022-12-25 11:38 | Inpatient (IN) | payer MEDICARE, OTHER ==
[~2022-12-25] VITALS: Ht 177.8 cm; Wt 83.9 kg
[~2022-12-25 11:38] MED LIST: ACET325T53 GT; ALBU1.257 IH; AMIN887L GT; ASCO500C17 GT; ATOR40TA GT; BISA10SU11 RC; CEFE2FRO IV; CICL6.6S5 TP; CLOB15OI3 TP; CRAN400C GT; DILTIAZEM GT; DOCU-141 GT; ENOX40DI SQ; FERR325T23 GT; FINA5TAB11 GT; FURO-144 GT; IPRA0.2S9 IH; LACT-209 GT; LACT100027 PO; LAMO150T6 GT; LANS30CA62 GT; LEVE1000 GT; LISI-768 GT; MAGN400O6 GT; METO25TA6 GT; NA P133E RC; Neomy Sulf/Bacitrac Zn/Poly TP; ONDA4VIA23 GT; PANT40TA49 PO; POTA20PA3 GT; Prosource GT; TAMS-12 GT; VANC1FRO2 IV; ZINC50TA65 GT
--- NOTE | 2022-12-25 12:00 | NUR ---
BIB [facility] FOR ELEVATED BUN (122) AND K+ (6.0) DRAWN YESTERDAY WAS GIVEN KAYEXALATE 45GM LAST NIGHT. REPEAT LABS PENDING. PLACED IN BED, AWAKE- NOT RESPONDING TO VERBAL-PAINFUL STIMULI, RESP. TECH AT BEDSIDE ATTACHED TO VENTILATOR WITH SETTING FIO2- 40, TV- 550, RATE- 16, PEEP- 5 SATURATING AT 99%.
--- NOTE | 2022-12-25 12:30 | NUR ---
AT BEDSIDE FOR EVAL.
--- NOTE | 2022-12-25 12:54 | NUR ---
CRUSHER SUPERVISOR AT BEDSIDE
[2022-12-25 13:29] LABS: BASOPHILS # (AUTO) 0.1 K/uL (0.0-0.2); BASOPHILS % (AUTO) 1.1 % (0.0-2.0); HEMATOCRIT 22 % (39-51); HEMOGLOBIN 7.2 g/dL (13.5-17.5); LYMPHOCYTES # (AUTO) 1.3 K/uL (0.8-4.8); LYMPHOCYTES % (AUTO) 22.5 % (20.0-44.0); MEAN CORPUSCULAR HGB CONC 33 g/dl (31.0-36.0); MEAN CORPUSCULAR VOLUME 93 fL (80-96); MONOCYTES # (AUTO) 0.8 K/uL (0.1-1.30); MONOCYTES % (AUTO) 13.5 % (2.0-12.0); NEUTROPHILS # (AUTO) 3.1 K/uL (1.8-8.9); NEUTROPHILS % (AUTO) 52.9 % (43.0-81.0); PLATELET COUNT (AUTO) 190 K/uL (150-450); RED BLOOD CELL COUNT(AUTO) 2.35 MIL/uL (4.5-6.0); WHITE BLOOD COUNT (AUTO) 5.8 K/uL (4.3-11.0)
[2022-12-25 13:34] LABS: CALCIUM, SERUM 8.7 mg/dL (8.5-10.1); POTASSIUM 4.5 mmol/L (3.5-5.1)
--- NOTE | 2022-12-25 14:30 | NUR ---
SUBMITTED MOVE SHEET
--- NOTE | 2022-12-25 14:47 | NUR ---
PAGED EPIC MANAGER LIBRARY
[2022-12-25] MEDS ORDERED: IV NS 0.9% 1,000 ML IV ONE (15:00)
--- NOTE | 2022-12-25 15:00 | NUR ---
CALLED DR. ARTHUR [phone]
--- NOTE | 2022-12-25 15:01 | NUR ---
DR. ARTHUR AND VIKTORIA AYALA ON THE PHONE
[2022-12-25] MEDS ORDERED: HYDR-4076 GT (15:11)
[2022-12-25] MEDS ORDERED: PANT40SU2 GT (15:11)
[2022-12-25] MEDS ORDERED: CRAN425C6 GT (15:11)
[2022-12-25] MEDS ORDERED: ZINC56.713 TP (15:11)
[2022-12-25] MEDS ORDERED: CRAN3875 GT (15:11)
[2022-12-25] MEDS ORDERED: LACT-96 GT (15:11)
[2022-12-25] MEDS ORDERED: ONDA4TAB5 GT (15:11)
[2022-12-25] MEDS ORDERED: ASCO500T10 GT (15:11)
[2022-12-25] MEDS ORDERED: XEROFORM TD (15:11)
[2022-12-25] MEDS ORDERED: AMIN30LI2 GT (15:11)
[2022-12-25] MEDS ORDERED: POVI3780 TP (15:11)
[2022-12-25] MEDS ORDERED: FERR300L GT (15:11)
[2022-12-25] MEDS ORDERED: MULT-447 GT (15:11)
[2022-12-25] MEDS ORDERED: CHLO473M5 MM (15:11)
[2022-12-25] MEDS ORDERED: DILT30TA14 GT (15:11)
--- NOTE | 2022-12-25 15:30 | NUR ---
SWAB FOR COVID19 AND URINE SAMPLE SENT TO LAB
[2022-12-25 16:11] LABS: BILIRUBIN,URINE NEGATIVE (NEGATIVE); COLOR,URINE YELLOW (YELLOW); LEUKOCYTE ESTERASE ,URINE 2+ (NEGATIVE); NITRITE, URINE NEGATIVE (NEGATIVE); PROTEIN,URINE 1+ mg/dl (NEGATIVE); UGLUCOSE NEGATIVE (NEGATIVE); UROBILINOGEN,URINE 0.2 EU/dL (0.2)
[2022-12-25 17:39] LABS: BACTERIA,URINE 3+ /HPF (None Seen); SQUAMOUS EPITHELIAL CELL,UR 0-2 /HPF (None Seen); WBC,URINE 21-50 /HPF (0-3)
--- NOTE | 2022-12-25 18:23 | NUR ---
REPORT GIVEN TO TIFFANIE RN ROOM [id number] FOR ABHINAV
--- NOTE | 2022-12-25 19:04 | NUR ---
PATIENT TRANSFERED AND ADMITTED PER ACLS PROTOCOL.
--- NOTE | 2022-12-25 19:30 | NUR ---
CORPORATE CONTROLLERREFLECTOR DRILLER AND DEBURRER NOTE RECEIVED PATIENT SLEEPING IN BED. PT CAME FROM ER DURING PREVIOUS SHIFT. PATIENT IS OBTUNDED, UNABLE TO VERBALIZE NEEDS. NO SOB, NO DISTRESS NOTED. PT ON VENT, AND TRACH. TELE MONITOR READING SR, WITH HR: 71. MIDLINE TO RIGHT UA, INTACT, AND PATENT. PT HAS REDNESS, AND RASH TO SACRAL AREA, BILATERAL HEELS DTI, ST TO BILATERAL LEGS, G-T STOMA REDNESS, AND INFECTED, ABRASION TO MID ABDOMEN, BUE BRUISES, EDEMA TO SCROTUM AREA. PT ON G-TUBE FEEDING. ALL THE BELONGINGS ACCOUNTED AND SIGN FOR. ALL SAFETY MEASURES IN PLACE. BED LOCKED IN THE LOWEST POSITION. CALL LIGHT AND TABLE IN EASY REACH. SIDE RAILS UP TIMES 2. WILL CONTINUE TO MONITOR CLOSELY.
[2022-12-25 20:00] VITALS: BP 123/59
--- NOTE | 2022-12-25 20:13 | NUR ---
RT pt received on mechanical vent with current settings. ambu bag and spare trach at bedside. no sob, no resp distress noted.
[2022-12-25 22:20] VITALS: BP 85/55
[2022-12-25] MEDS ORDERED: NA PHOS,M-B/NA PHOS,DI-BA 1 EA ENEMA RC PRN (22:30)
[2022-12-25] MEDS ORDERED: MAGNESIUM HYDROXIDE 30 ML UDC GT PRN (22:30)
[2022-12-25] MEDS ORDERED: BISACODYL SUPP (10 MG) 10 MG/SUPP.RECT SUPP.RECT RC PRN (22:30)
[2022-12-25] MEDS ORDERED: ONDANSETRON 4 MG TAB.RAPDIS GT PRN (22:30)
[2022-12-26] VITALS (7 sets, daily range): BP systolic 110–145; BP diastolic 59–74
[2022-12-26] MEDS: IV NS 0.9% 1,000 ML IV PRN (02:37)
[2022-12-26] MEDS: ALBUTEROL FS 2.5 MG/3 ML VIAL.NEB NEB SCH ×6 (03:05→22:53)
[2022-12-26] MEDS: IPRATROPIUM NEB FS 0.5 MG/2.5 ML AMPUL.NEB NEB SCH ×6 (03:05→22:53)
[2022-12-26 06:34] LABS: BASOPHILS # (AUTO) 0.1 K/uL (0.0-0.2); BASOPHILS % (AUTO) 1.2 % (0.0-2.0); EOSINOPHILS % (AUTO) 7.9 % (0.0-6.0); HEMATOCRIT 22 % (39-51); HEMOGLOBIN 7.3 g/dL (13.5-17.5); LYMPHOCYTES # (AUTO) 1.2 K/uL (0.8-4.8); LYMPHOCYTES % (AUTO) 23.2 % (20.0-44.0); MEAN CORPUSCULAR HGB CONC 33 g/dl (31.0-36.0); MEAN CORPUSCULAR VOLUME 93 fL (80-96); MONOCYTES # (AUTO) 0.4 K/uL (0.1-1.30); MONOCYTES % (AUTO) 7.5 % (2.0-12.0); NEUTROPHILS # (AUTO) 3.2 K/uL (1.8-8.9); NEUTROPHILS % (AUTO) 60.2 % (43.0-81.0); PLATELET COUNT (AUTO) 184 K/uL (150-450); RED BLOOD CELL COUNT(AUTO) 2.42 MIL/uL (4.5-6.0); WHITE BLOOD COUNT (AUTO) 5.3 K/uL (4.3-11.0)
--- NOTE | 2022-12-26 06:34 | NUR ---
INSTITUTIONAL RESEARCH COORDINATOR NOTE Addendum: 12/26/22 at 0458 by JOSE JUAN LAM RN DISREGARD, WRONG ENTRY
--- NOTE | 2022-12-26 06:35 | NUR ---
SAGGER MAKER CLOSING NOTE LEFT PATIENT SLEEPING IN BED. PATIENT IS OBTUNDED, UNABLE TO VERBALIZE NEEDS. NO SOB, NO DISTRESS NOTED. PT ON VENT, AND TRACH. TELE MONITOR READING SR. MIDLINE TO RIGHT UA, INTACT, AND PATENT, INFUSING NS AT 75 ML/HR. PT HAS REDNESS, AND RASH TO SACRAL AREA, BILATERAL HEELS DTI, ST TO BILATERAL LEGS, G-T STOMA REDNESS, AND INFECTED, ABRASION TO MID ABDOMEN, BUE BRUISES, EDEMA TO SCROTUM AREA. PT ON G-TUBE FEEDING RUNNING AT 65 ML/HR. ALL SAFETY MEASURES IN PLACE. BED LOCKED IN THE LOWEST POSITION. CALL LIGHT AND TABLE IN EASY REACH. SIDE RAILS UP TIMES 2. WILL ENDORSE PT TO AM SHIFT NURSE FOR ABHINAV.
[2022-12-26] MEDS: DILTIAZEM HCL 30 MG TABLET GT SCH ×4 (06:46→17:58)
[2022-12-26 07:03] LABS: CALCIUM, SERUM 9.3 mg/dL (8.5-10.1); CREATININE 3.6 mg/dL (0.6-1.3); MAGNESIUM 2.2 mg/dL (1.8-2.4); PHOSPHORUS 5.1 mg/dL (2.5-4.9); POTASSIUM 4.1 mmol/L (3.5-5.1)
--- NOTE | 2022-12-26 07:30 | NUR ---
RESIDENTIAL GREEN BUILDING DESIGNER OPENING NOTES RECEIVED PATIENT ON BED, OBTUNDED. ON MECHANICAL VENT TOLERATING CURRENT SETTINGS. NOT IN DISTRESS. WITH IV ACCESS AT THE RIGHT UPPER ARM MIDLINE WITH NS AT 75ML/HR INFUSING WELL. ON TELE MONITOR CURRENTLY READING SINUS RHYTHM AT 75BPM. ON JEVITY 1.2 AT 65ML/HR VIA G-TUBE RUNNING WELL. WITH TRINH CATHETER IN PLACED DRAINING CLEAR YELLOW URINE. SAFETY MEASURES IN PLACED. CALL LIGHT WITHIN REACH. BED ON LOWEST LOCKED POSITION, SIDE RAILS UP X2. WILL CONTINUE TO MONITOR.
[2022-12-26] MEDS ORDERED: CHLORHEXIDINE GLUCONATE 15 ML UDC MM SCH (09:00)
[2022-12-26] MEDS: FERROUS SULFATE UDC 300 MG/5 ML UDC GT SCH ×3 (09:06→16:55)
[2022-12-26] MEDS: LEVETIRACETAM SOL (5 ML) 100 MG/ML UDC GT SCH ×2 (09:06→16:55)
[2022-12-26] MEDS: ZINC SULFATE 220 MG CAPSULE GT SCH (09:06)
[2022-12-26] MEDS: ASCORBIC ACID 500 MG TABLET GT SCH (09:06)
[2022-12-26] MEDS: FINASTERIDE (5 MG) 5 MG TABLET GT SCH (09:06)
[2022-12-26] MEDS: PANTOPRAZOLE 40 MG/PACK PACK GT SCH (09:06)
[2022-12-26] MEDS: MULTIVIT W/MINERALS 1 TAB TABLET GT SCH (09:07)
[2022-12-26] MEDS: ENOXAPARIN SODIUM 30 MG/0.3 ML DISP.SYRIN SQ SCH (09:08)
[2022-12-26] MEDS: LISINOPRIL (5MG) 5 MG TABLET GT SCH (09:09)
[2022-12-26] MEDS: LamoTRIgine 100 MG TABLET GT SCH ×2 (09:09→16:57)
[2022-12-26] MEDS: PROSOURCE / PROSTAT (PYXIS) 30 ML UDC GT SCH ×3 (09:10→16:58)
[2022-12-26] MEDS: METOPROLOL TARTRATE 25 MG TABLET GT SCH ×2 (09:10→16:57)
[2022-12-26] MEDS ORDERED: MAGNESIUM HYDROXIDE 30 ML UDC GT PRN (15:00)
[2022-12-26] MEDS ORDERED: ACETAMINOPHEN 325 MG TABLET MC PRN (15:00)
[2022-12-26] MEDS ORDERED: NA PHOS,M-B/NA PHOS,DI-BA 1 EA ENEMA RC PRN (15:00)
[2022-12-26] MEDS ORDERED: hydrALAZINE HCL 25 MG TABLET GT PRN (15:00)
[2022-12-26] MEDS ORDERED: IPRATROPIUM NEB FS 0.5 MG/2.5 ML AMPUL.NEB IH PRN (15:00)
[2022-12-26] MEDS ORDERED: FERROUS SULFATE UDC 300 MG/5 ML UDC GT SCH (15:00)
[2022-12-26] MEDS ORDERED: ASCORBIC ACID 500 MG TABLET GT SCH (15:00)
[2022-12-26] MEDS ORDERED: BISACODYL SUPP (10 MG) 10 MG/SUPP.RECT SUPP.RECT RC PRN (15:00)
[2022-12-26] MEDS ORDERED: ALBUTEROL HALF STRENGTH 1.25 MG/3 ML VIAL.NEB IH PRN (15:00)
[2022-12-26] MEDS ORDERED: Medication Not On Formulary EA (Ondansetron Hcl (Zofran) 4 MG) GT PRN (15:00)
[2022-12-26] MEDS ORDERED: ACETAMINOPHEN 325 MG TABLET PO PRN (15:00)
[2022-12-26] MEDS ORDERED: LISINOPRIL (5MG) 5 MG TABLET GT SCH (15:00)
[2022-12-26] MEDS ORDERED: JEVITY 1.2 CAL 1,000 ML BOTTLE GT PRN (15:00)
[2022-12-26] MEDS: PIPERACILLIN /TAZOBACTAM 3.375 G in IV D5W 100 ML IV SCH (16:53)
[2022-12-26] MEDS: ACETAMINOPHEN 650 MG/20.3 ML UDC GT SCH (16:54)
[2022-12-26] MEDS: POVIDONE-IODINE OINT 28.4 GM TUBE TP SCH (16:58)
[2022-12-26] MEDS ORDERED: Medication Not On Formulary EA (Cranberry Extract (Cranberry) 850 MG) GT SCH (17:00)
[2022-12-26] MEDS ORDERED: METOPROLOL TARTRATE 25 MG TABLET GT SCH (17:00)
[2022-12-26] MEDS ORDERED: FUROSEMIDE 40 MG TABLET GT SCH (17:00)
[2022-12-26] MEDS ORDERED: Medication Not On Formulary EA (Lamotrigine 150 MG) GT SCH (17:00)
[2022-12-26] MEDS ORDERED: Medication Not On Formulary EA (Cran/Vitc/Mannose/Inulin/Brom (Uti-Stat Liquid) 3,875 MG GT SCH (17:00)
[2022-12-26] MEDS ORDERED: PROSOURCE / PROSTAT (PYXIS) 30 ML UDC GT SCH (17:00)
--- NOTE | 2022-12-26 18:05 | NUR ---
RN NOTES PATIENT IS OBTUNDED. ON MECHANICAL VENT TOLERATING CURRENT SETTING. ON TELE MONITOR CURRENTLY READING SINUS RHYTHM AT 69BPM. WITH TRINH CATHETER IN PLACED DRAINING CLEAR YELLOW URINE. WITH IV ACCESS ON RIGHT UPPER ARM MIDLINE WITH NS AT 75ML/HR. SODIUM IS ELEVATED. PER DOCTOR ATTARCHI, KEEP IVF NS AT 75ML/HR RIGHT TODAY TO HYDRATE THE PATIENT AND MONITOR CREATININE DAILY. ON NEPRO FEEDING AT 65ML/HR RUNNING WELL. DUE MEDS GIVEN. SAFETY MEASURES IN PLACED. CALL LIGHT WITHIN REACH. BED ON LOWEST LOCKED POSITION, SIDE RAILS UP X2. WILL ENDORSE TO NEXT SHIFT FOR ABHINAV.
--- NOTE | 2022-12-26 20:00 | NUR ---
CLOCK MAKER NOTES RECEIVED ON BED,OBTUNDED,HOB ELEVATED,FOR ASPIRATION PRECAUTION,GT FEEDING ON HOLD DUE TO N/V ON DAYTIME.WITH RIGHT UPPER AR MIDLINE INFUSING NS AT 75ML/HR RATE,SITE PATENT.SKIN WARM TO THE TOUCH,ORAL TEMP OF 100.6.WILL MEDICATE.WITH TRINH CATH IN PLACE DRAINS YELLOWISH OUTPUT.SR ON TELE MONITOR.WILL REPOSITION PER PROTOCOL.WILL CONTINUE TO MONITOR STATUS.
--- NOTE | 2022-12-26 20:00 | NUR ---
RT Pt recvd on AC 16 525 40% +5 vent settings and carolyn well. Trach is patent and secured. Neb tx given and carolyn well, Pt has diminished BS, no SOB or respiratory distress noted at this time. Suction done PRN, Vent is plugged into red outlet with alarms on and audible. Spare trach and ambu bag at bedside.
--- NOTE | 2022-12-26 20:30 | NUR ---
JOB TRAINER NOTES WITH ORAL TEMP OF 100.6,JUST MEDICATED WITH TYLENOL 650/GT AT 1654,COOLING MEASURES STARTED.
[2022-12-26] MEDS: CHLORHEXIDINE GLUCONATE 15 ML UDC MM SCH (21:26)
[2022-12-26] MEDS: ATORVASTATIN 40 MG TABLET GT SCH (21:29)
[2022-12-26] MEDS: TAMSULOSIN 0.4 MG CAP.SR.24H GT SCH (21:29)
[2022-12-26] MEDS: DOCUSATE SODIUM LIQ 100 MG/10 ML UDC GT SCH (21:29)
[2022-12-26] MEDS ORDERED: TAMSULOSIN 0.4 MG CAP.SR.24H GT SCH (22:00)
[2022-12-26] MEDS ORDERED: DOCUSATE SODIUM LIQ 100 MG/10 ML UDC GT SCH (22:00)
[2022-12-26] MEDS ORDERED: ATORVASTATIN 40 MG TABLET GT SCH (22:00)
--- NOTE | 2022-12-26 22:30 | NUR ---
COOK CASHIER FOOD PREP NOTES RE CHECKED BODY TEMPERATURE THIS TIME AND STILL FEBRILE AT 102.8.MEDICATED WITH TYLENOL 650MG/GT ORDERED FOR FEVER.CONTINUE WITH COOLING MEASURES.
[2022-12-26] MEDS: ACETAMINOPHEN 650 MG/20.3 ML UDC GT PRN (22:43)
[2022-12-27] VITALS (15 sets, daily range): BP systolic 109–165; BP diastolic 58–90
[2022-12-27] MEDS: DILTIAZEM HCL 30 MG TABLET GT SCH ×4 (00:08→18:00)
[2022-12-27] MEDS: PIPERACILLIN /TAZOBACTAM 3.375 G in IV D5W 100 ML IV SCH ×3 (00:09→16:47)
[2022-12-27] MEDS: ALBUTEROL FS 2.5 MG/3 ML VIAL.NEB NEB SCH ×5 (03:38→19:55)
[2022-12-27] MEDS: IPRATROPIUM NEB FS 0.5 MG/2.5 ML AMPUL.NEB NEB SCH ×5 (03:38→19:55)
--- NOTE | 2022-12-27 04:15 | NUR ---
SUTURE POLISHER NOTES ORAL TEMP RECHECKED AND IT WAS 100.2.
[2022-12-27] MEDS: ACETAMINOPHEN 650 MG/20.3 ML UDC GT PRN (04:31)
--- NOTE | 2022-12-27 04:31 | NUR ---
CHOPPED STRAND OPERATOR NOTES MEDICATED WITH TYLENOL 650MG/GT ORDERED Q 4 FOR INCREASED TEMP.CONTINUE WITH COOLING MEASURES.
[2022-12-27] MEDS: IV NS 0.9% 1,000 ML IV PRN ×2 (05:47→18:17)
--- NOTE | 2022-12-27 06:13 | NUR ---
PENS AND PENCILS REPAIRER NOTES LYING ON BED,OBTUNDED,SKIN WARM TO THE TOUCH.GT FEEDING RESUMED.NO VOMITING NOTED.HOB ELEVATED.IN NO ACUTE DISTRESS.
[2022-12-27 07:23] LABS: CALCIUM, SERUM 9.1 mg/dL (8.5-10.1); CARBON DIOXIDE 26 mmol/L (21-32); CHLORIDE 110 mmol/L (98-107); GLUCOSE 161 mg/dL (74-106); MAGNESIUM 2.2 mg/dL (1.8-2.4); PHOSPHORUS 4.3 mg/dL (2.5-4.9); POTASSIUM 3.8 mmol/L (3.5-5.1); SODIUM SERUM 148 mmol/L (136-145)
[2022-12-27 07:26] LABS: UREA NITROGEN, BLOOD 90 mg/dL (7-18)
--- NOTE | 2022-12-27 07:28 | NUR ---
FABRIC AWNING REPAIRER OPENING NOTE RECEIVED PT ASLEEP IN BED. PT IS OBTUNDED. PT IS ON MECHANICAL VENT ON PRESCRIBED SETTINGS, TOLERATING WELL. NO SOB NOTED. NOT IN ANY SIGN OF RESPIRATORY DISTRESS. PT ON TELE RUBBER TRIMMER WITH CURRENT READING OF SINUS RUTH, HR 55. NO SIGNS CARDIAC DISTRESS NOTED AT THIS TIME. IV ACCESS ON ULICES MIDLINE INTACT, AND PATENT WITH NS INFUSING AT 75ML/HR. GTUBE INTACT WITH FEEDING RUNNING. KEPT HOB ELEVATED AT ALL TIMES. SAFETY MEASURES IN PLACE: BED IN LOWEST AND LOCKED POSITION, SIDE RAILS UP X3, BED ALARM ON, AND CALL LIGHT WITHIN REACH. WILL CONTINUE PT WITH PLAN OF CARE. Addendum: 12/27/22 at 0829 by DAIANA MARTINEZ RN CORRECTION: IV ACCESS IS ON THE GLEN MIDLINE.
[2022-12-27 08:09] LABS: BASOPHILS # (AUTO) 0.1 K/uL (0.0-0.2); BASOPHILS % (AUTO) 0.7 % (0.0-2.0); EOSINOPHILS % (AUTO) 0.2 % (0.0-6.0); LYMPHOCYTES # (AUTO) 1.3 K/uL (0.8-4.8); LYMPHOCYTES % (AUTO) 16.8 % (20.0-44.0); MEAN CORPUSCULAR HGB CONC 32 g/dl (31.0-36.0); MEAN CORPUSCULAR VOLUME 93 fL (80-96); MONOCYTES # (AUTO) 1.3 K/uL (0.1-1.30); NEUTROPHILS # (AUTO) 4.9 K/uL (1.8-8.9); NEUTROPHILS % (AUTO) 65.3 % (43.0-81.0); PLATELET COUNT (AUTO) 157 K/uL (150-450); RED BLOOD CELL COUNT(AUTO) 2.14 MIL/uL (4.5-6.0); WHITE BLOOD COUNT (AUTO) 7.6 K/uL (4.3-11.0)
[2022-12-27] MEDS: PANTOPRAZOLE 40 MG/PACK PACK GT SCH (08:24)
[2022-12-27 08:36] LABS: HEMATOCRIT 20 % (39-51); HEMOGLOBIN 6.4 g/dL (13.5-17.5)
[2022-12-27] MEDS ORDERED: ZINC OXIDE 56.7 GM TUBE TP SCH (09:00)
[2022-12-27] MEDS ORDERED: POTASSIUM CHLORIDE 20 MEQ POWDER PACKET GT SCH (09:00)
[2022-12-27] MEDS ORDERED: PANTOPRAZOLE 40 MG/PACK PACK GT SCH (09:00)
[2022-12-27] MEDS ORDERED: FINASTERIDE (5 MG) 5 MG TABLET GT SCH (09:00)
[2022-12-27] MEDS: ENOXAPARIN SODIUM 30 MG/0.3 ML DISP.SYRIN SQ SCH (09:00)
[2022-12-27] MEDS: METOPROLOL TARTRATE 25 MG TABLET GT SCH ×2 (09:00→17:00)
[2022-12-27] MEDS ORDERED: ENOXAPARIN SODIUM 30 MG/0.3 ML DISP.SYRIN SQ SCH (09:00)
[2022-12-27] MEDS ORDERED: Medication Not On Formulary EA (Zinc Amino Acid Chelate (Zinc) 50 MG) GT SCH (09:00)
[2022-12-27] MEDS ORDERED: Medication Not On Formulary EA (Multivitamin With Minerals (One Daily Complete) 1 EACH) GT SCH (09:00)
--- NOTE | 2022-12-27 09:00 | NUR ---
RN NOTE RECEIVED A CALL FROM POLITICAL CONSULTANTJAJA OLIVARES REPORTING CRITICAL LAB OF HEMOGLOBIN 6.4 AND LACTIC ACID 2.9. CALLED DR. ARTHUR AND MADE AWARE OF PT'S CRITICAL LAB VALUES. ALSO MADE HIM AWARE THAT PT CURRENTLY HAS A PER STANDING ORDER OF 1 UNIT PRBC AND BLOOD IS READY. NO NEW ORDER AT THIS TIME FROM DR. ARTHUR.
[2022-12-27] MEDS: PROSOURCE / PROSTAT (PYXIS) 30 ML UDC GT SCH ×3 (09:08→17:19)
[2022-12-27] MEDS: ZINC SULFATE 220 MG CAPSULE GT SCH (09:10)
[2022-12-27] MEDS: LEVETIRACETAM SOL (5 ML) 100 MG/ML UDC GT SCH ×2 (09:10→17:17)
[2022-12-27] MEDS: CHLORHEXIDINE GLUCONATE 15 ML UDC MM SCH ×2 (09:10→21:34)
[2022-12-27] MEDS: FINASTERIDE (5 MG) 5 MG TABLET GT SCH (09:10)
[2022-12-27] MEDS: MULTIVIT W/MINERALS 1 TAB TABLET GT SCH (09:10)
[2022-12-27] MEDS: FERROUS SULFATE UDC 300 MG/5 ML UDC GT SCH ×3 (09:10→17:17)
[2022-12-27] MEDS: LamoTRIgine 100 MG TABLET GT SCH ×2 (09:11→17:16)
[2022-12-27] MEDS: ASCORBIC ACID 500 MG TABLET GT SCH (09:12)
[2022-12-27] MEDS: POVIDONE-IODINE OINT 28.4 GM TUBE TP SCH ×2 (09:13→17:18)
[2022-12-27] MEDS: LISINOPRIL (5MG) 5 MG TABLET GT SCH (09:13)
--- NOTE | 2022-12-27 09:15 | NUR ---
RN NOTE LOVENOX MEDICATION SCHEDULED AT 0900 NOT ADMINISTERED. PT'S HEMOGLOBIN IS 6.4. METOPROLOL MEDICATION SCHEDULED ALSO AT 0900 NOT ADMINISTERED PT'S HR IS 58.
[2022-12-27 09:39] LABS: EOSINOPHILS % (MANUAL) 0 % (0-4); LYMPHOCYTES % (MANUAL) 15 % (16-48); MONOCYTES % (MANUAL) 16 % (0-11.0); NEUTROPHILS % (MANUAL) 69 (42-76)
[2022-12-27 09:40] LABS: BASOPHILS % (MANUAL) 0 % (0.0-2.0)
[2022-12-27] MEDS: ACETAMINOPHEN 650 MG/20.3 ML UDC GT SCH ×2 (09:57→17:17)
[2022-12-27 10:10] LABS: BILIRUBIN,DIRECT 0.1 mg/dL (0.0-0.2); BILIRUBIN,TOTAL 0.4 mg/dL (0.2-1.0)
--- NOTE | 2022-12-27 11:17 | NUR ---
RN NOTE BLOOD PICKED UP FROM BLOOD BANK AND WAS VERIFIED BY CHIEF LIFESTYLE OFFICERJAJA. BLOOD TRANSFUSION STARTED VIA GLEN G#18 MIDLINE. VITALS SIGNS PRIOR TO TRANSFUSION: BP 134/68, T 98.1, P 58, RR 18, SPO2 IS 98% ON PRESCRIBED MECHANICAL VENT. BLOOD WAS VERIFIED WITH REAGAN SHAW PRIOR TO TRANSFUSING BLOOD. WILL MONITOR AND REASSESS PT.
--- NOTE | 2022-12-27 11:32 | NUR ---
RN NOTE REASSESSED PT AFTER 15 MINUTES ON BLOOD TRANSFUSION. NO ALLERGIC ADVERSE REACTION NOTED. NO SIGNS OF CHILLS OR HIVES NOTED. VITALS SIGNS: BP 140/62, T 97.9, P 55, RR 16. SPO2 IS 98% ON PRESCRIBED MECHANICAL VENT. WILL MONITOR AND REASSESS PT.
--- NOTE | 2022-12-27 12:02 | NUR ---
RN NOTE REASSESSED PT AFTER ANOTHER 30 MINUTES ON BLOOD TRANSFUSION. NO ALLERGIC ADVERSE REACTION NOTED. NO SIGNS OF CHILLS OR HIVES NOTED. VITALS SIGNS: BP 144/77, T 97.6, P 58, RR 16. SPO2 IS 98% ON PRESCRIBED MECHANICAL VENT. WILL MONITOR AND REASSESS PT.
--- NOTE | 2022-12-27 13:02 | NUR ---
RN NOTE REASSESSED PT AFTER ANOTHER HOUR ON BLOOD TRANSFUSION. NO ALLERGIC ADVERSE REACTION NOTED. NO SIGNS OF CHILLS OR HIVES NOTED. VITALS SIGNS: BP 146/90, T 97.7, P 50, RR 16. SPO2 IS 100% ON PRESCRIBED MECHANICAL VENT. WILL MONITOR AND REASSESS PT.
--- NOTE | 2022-12-27 13:12 | NUR ---
RN NOTE RECEIVED AN ORDER FROM DR. ARTHUR TO INFUSE ANOTHER 1 UNIT OF PRBC DUE TO HEMOGLOBIN BEING TOO LOW AT 6.4. ORDERS CARRIED OUT.
--- NOTE | 2022-12-27 13:42 | NUR ---
RN NOTE BLOOD TRANSFUSION ENDED. PT TOLERATED THE BLOOD TRANSFUSION WELL. PT REMAINED WITH NO ALLERGIC ADVERSE REACTION NOTED. NO SIGNS OF CHILLS OR HIVES NOTED. VITALS SIGNS: BP 150/75, T 97.7, P 53, RR 16. SPO2 IS 100% ON PRESCRIBED MECHANICAL VENT. AWAITING FOR THE SECOND UNIT OF PRBC TO BE READY FROM BLOOD BANK ORDERED.
--- NOTE | 2022-12-27 15:39 | NUR ---
RN NOTE SECOND UNIT OF BLOOD WAS READY AND PICKED UP FROM BLOOD BANK AND WAS VERIFIED BY STUDIO ASSISTANTLUMA. BLOOD TRANSFUSION STARTED VIA GLEN G#18 MIDLINE. VITALS SIGNS PRIOR TO TRANSFUSION, BP 157/79, T 97.8, P 54, RR 16. BLOOD WAS VERIFIED WITH REAGAN SHAW PRIOR TO TRANSFUSING BLOOD. WILL MONITOR AND REASSESS PT.
--- NOTE | 2022-12-27 15:54 | NUR ---
RN NOTE REASSESSED PT AFTER 15 MINUTES ON BLOOD TRANSFUSION. NO ALLERGIC ADVERSE REACTION NOTED. NO SIGNS OF CHILLS OR HIVES NOTED. VITALS SIGNS: BP 165/80, T 97.8, P 59, RR 16. SPO2 IS 99% ON PRESCRIBED MECHANICAL VENT. WILL MONITOR AND REASSESS PT.
--- NOTE | 2022-12-27 16:24 | NUR ---
RN NOTE REASSESSED PT AFTER ANOTHER 30 MINUTES ON BLOOD TRANSFUSION. NO ALLERGIC ADVERSE REACTION NOTED. NO SIGNS OF CHILLS OR HIVES NOTED. VITALS SIGNS: BP 164/78, T 98.3, P 52, RR 16. SPO2 IS 99% ON PRESCRIBED MECHANICAL VENT. WILL MONITOR AND REASSESS PT.
[2022-12-27] MEDS: hydrALAZINE HCL 25 MG TABLET GT PRN (16:31)
--- NOTE | 2022-12-27 16:33 | NUR ---
RN NOTE PT NOTED WITH ELEVATED BLOOD PRESSURE OF 170/86 TAKEN AUTOMATIC. REASSESSED PT'S BP MANUALLY AND IT'S 164/78. HYDRALAZINE 25 MG VIA GT ADMINISTERED ORDERED Q6HRS PRN FOR SBP >160MG/DL. WILL MONITOR AND REASSESS PT.
--- NOTE | 2022-12-27 17:24 | NUR ---
RN NOTE REASSESSED PT AFTER ANOTHER HOUR ON BLOOD TRANSFUSION. NO ALLERGIC ADVERSE REACTION NOTED. NO SIGNS OF CHILLS OR HIVES NOTED. VITALS SIGNS: BP 160/74, T 98.0, P 59, RR 16. SPO2 IS 99% ON PRESCRIBED MECHANICAL VENT. WILL MONITOR AND REASSESS PT.
--- NOTE | 2022-12-27 17:33 | NUR ---
RN NOTE METOPROLOL SCHEDULED AT 1700 NOT ADMINISTERED. PT'S HR IS 59.
--- NOTE | 2022-12-27 18:25 | NUR ---
RN NOTE CALLED DR. JERSON RIOS AND MADE HIM AWARE THAT PT CURRENTLY STILL ON BLOOD TRANSFUSION. PT'S BP WAS 164/78 AT 1624 DURING TRANSFUSION AND HYDRALAZINE 25 MG VIA GT WAS GIVEN ORDERED 6HRS PRN FOR SBP >160. IT IMPROVED BUT NOW ELEVATED AGAIN AT 164/70 WITH HR 55 TAKEN MANUALLY AT 1824. PER MD TO GIVE HYDRALAZINE AGAIN AT 20MG IVP X1 TIME DOSE. ORDERS CARRIED OUT.
[2022-12-27] MEDS ORDERED: hydrALAZINE HCL IV 20 MG VIAL IV ONE (19:00)
--- NOTE | 2022-12-27 19:01 | NUR ---
RN NOTE BLOOD TRANSFUSION ENDED. PT TOLERATED THE BLOOD TRANSFUSION WELL. PT REMAINED WITH NO ALLERGIC ADVERSE REACTION NOTED. NO SIGNS OF CHILLS OR HIVES NOTED. VITALS SIGNS: BP 160/76, T 98.1, P 75, RR 16. SPO2 IS 98% ON PRESCRIBED MECHANICAL VENT. BP IS IMPROVING AFTER ADMINISTERING THE HYDRALAZINE MEDICATION 20MG IVP X ONE TIME DOSE.
--- NOTE | 2022-12-27 19:05 | NUR ---
ENVIRONMENTAL TEST TECHNICIAN OPENING NOTE PT IS LYING IN BED WITH THE HOB ELEVATED AT ABOUT 60 DEGREE. HIS IS AT THE BEDSIDE. PT RESPONDS TO HIS NAME ONLY. AO X 1. PT HAS A TRACH, CONNECTING WITH A DEVELOPMENTAL EDUCATION INSTRUCTOR VENTILATOR. PT IS CALM; NO S/S OF HAVING PAIN, SOB OR DISTRESS. HE HAS A G-TUBE, RUNNING JEVITY 1.2 AT 45 ML/HR. CHECKED THE PLACEMENT OF THE G-TUBE, IN PLACED. FLUSHED THE G-TUBE WITH 30 ML OF WATER. G-TUBE STOMA IS RED WITH YELLOW AND RED COLOR DRAINAGE. CLEANED THE STOMA WITH NS, DRY IT UP, APPLIED A NEW GAUZE AT THE STOMA. CHECKED THE RESIDUAL OF THE G-TUBE, ZERO RESIDUAL. RESUMED THE FEEDING. IV ACCESS IS AT HIS L UA, ML, #18, RUNNING ANTIBIOTIC NOW. PT HAS A TRINH CATHETER, DRAINING CLOUDY YELLOW COLOR URINE FREELY. SAFETY MEASURES ARE IN PLACE: BED IN LOWEST AND LOCKED POSITION; SIDE RAILS UP X 2; BED ALARM IS SET; CALL LIGHT AND TABLE ARE WITHIN REACH. WILL CONTINUE MONITOR THE PT AND PROVIDE THE CARE PT NEEDS. Addendum: 12/27/22 at 2311 by GANESH PRUETT RN PT IS ON EXTERNAL UPHOLSTERY TECHNICIAN. ON THE MONITOR, HIS HEART RHYTHM IS SR WITH HR AT 70S.
--- NOTE | 2022-12-27 19:50 | NUR ---
AUTO SERVICE ADVISOR CLOSING NOTE PT AWAKE IN BED WITH AT BEDSIDE. PT IS OBTUNDED. PT IS ON MECHANICAL VENT ON PRESCRIBED SETTINGS, TOLERATING WELL. NO SOB NOTED. NOT IN ANY SIGN OF RESPIRATORY DISTRESS. PT ON TELE POOL NURSE WITH CURRENT READING OF SINUS RHYTHM, HR 80. NO SIGNS CARDIAC DISTRESS NOTED AT THIS TIME. IV ACCESS ON ULICES MIDLINE INTACT, AND PATENT WITH NS INFUSING AT 75ML/HR. GTUBE INTACT WITH FEEDING RUNNING. KEPT HOB ELEVATED AT ALL TIMES. ALL NEEDS ATTENDED. KEPT CLEAN AND COMFORTABLE AT ALL TIMES. TURNED AND REPOSITIONED Q2HRS AND NEEDED. SAFETY MEASURES IN PLACE: BED IN LOWEST AND LOCKED POSITION, SIDE RAILS UP X3, BED ALARM ON, AND CALL LIGHT WITHIN REACH. ENDORSED TO TELECOMMUNICATIONS REPAIRER NURSE FOR ABHINAV. Addendum: 12/29/22 at 0754 by DAIANA MARTINEZ RN CORRECTION: IV ACCESS IS ON THE GLEN MIDLINE.
[2022-12-27] MEDS: ATORVASTATIN 40 MG TABLET GT SCH (21:33)
[2022-12-27] MEDS: DOCUSATE SODIUM LIQ 100 MG/10 ML UDC GT SCH (21:33)
[2022-12-27] MEDS: TAMSULOSIN 0.4 MG CAP.SR.24H GT SCH (21:33)
[2022-12-28 00:05] VITALS: BP 133/75
[2022-12-28] MEDS: PIPERACILLIN /TAZOBACTAM 3.375 G in IV D5W 100 ML IV SCH ×4 (00:09→23:44)
[2022-12-28] MEDS: DILTIAZEM HCL 30 MG TABLET GT SCH ×4 (00:24→17:51)
[2022-12-28] MEDS: IPRATROPIUM NEB FS 0.5 MG/2.5 ML AMPUL.NEB NEB SCH ×6 (00:48→18:49)
[2022-12-28] MEDS: ALBUTEROL FS 2.5 MG/3 ML VIAL.NEB NEB SCH ×6 (00:48→18:49)
[2022-12-28 03:23] VITALS: BP 146/82
[2022-12-28 06:27] LABS: BASOPHILS # (AUTO) 0.1 K/uL (0.0-0.2); EOSINOPHILS % (AUTO) 4.1 % (0.0-6.0); HEMATOCRIT 27 % (39-51); HEMOGLOBIN 8.7 g/dL (13.5-17.5); MEAN CORPUSCULAR HGB CONC 33 g/dl (31.0-36.0); MEAN CORPUSCULAR VOLUME 88 fL (80-96); MONOCYTES % (AUTO) 12.8 % (2.0-12.0); NEUTROPHILS # (AUTO) 5.1 K/uL (1.8-8.9); NEUTROPHILS % (AUTO) 68.1 % (43.0-81.0); PLATELET COUNT (AUTO) 167 K/uL (150-450); RED BLOOD CELL COUNT(AUTO) 3.02 MIL/uL (4.5-6.0); WHITE BLOOD COUNT (AUTO) 7.4 K/uL (4.3-11.0)
[2022-12-28 06:47] LABS: CALCIUM, SERUM 9.3 mg/dL (8.5-10.1); CREATININE 3.6 mg/dL (0.6-1.3); MAGNESIUM 2.2 mg/dL (1.8-2.4); PHOSPHORUS 4.5 mg/dL (2.5-4.9)
--- NOTE | 2022-12-28 07:30 | NUR ---
TELE PACS SPECIALIST OPENING NOTE PATIENT RECEIVED IN BED WITH EYES OPEN. PATIENT IS OBTUNDED, WITH TRACH ON VENTILATOR TOLERATING CURRENT SETTING WELL, S02 100%.; IN FOWLERS POSITION. PATIENT IS ON EXTERNAL WINE CONSULTANT, TELE MONITOR READING NSR 62. G-TUBE INTACT AND PATENT, FEEDING JEVITY 1.2@ 45ML/HR, GOAL IS 65ML/HR. TRINH CATHETER IN PLACE, DRAINING TO A CLOUDY YELLOW URINE. ASPIRATION PRECAUTIONS MAINTAINED. IV SITE GLEN MIDLINE, G#18, CLEAN AND INTACT. PATIENT SAFETY PRECAUTION ARE IN PLACE: BED AT THE LOWEST POSITION, LOCKED, SR X2.
[2022-12-28 08:20] LABS: OCCULT BLOOD STOOL NEGATIVE (NEGATIVE)
[2022-12-28 08:28] VITALS: BP 147/69
[2022-12-28] MEDS: PANTOPRAZOLE 40 MG/PACK PACK GT SCH (08:50)
[2022-12-28] MEDS: LEVETIRACETAM SOL (5 ML) 100 MG/ML UDC GT SCH ×2 (09:18→17:13)
[2022-12-28] MEDS: LamoTRIgine 100 MG TABLET GT SCH ×2 (09:19→17:17)
[2022-12-28] MEDS: ASCORBIC ACID 500 MG TABLET GT SCH (09:20)
[2022-12-28] MEDS: MULTIVIT W/MINERALS 1 TAB TABLET GT SCH (09:20)
[2022-12-28] MEDS: LISINOPRIL (5MG) 5 MG TABLET GT SCH (09:20)
[2022-12-28] MEDS: CHLORHEXIDINE GLUCONATE 15 ML UDC MM SCH ×2 (09:20→21:38)
[2022-12-28] MEDS: ACETAMINOPHEN 650 MG/20.3 ML UDC GT SCH ×2 (09:20→17:13)
[2022-12-28] MEDS: METOPROLOL TARTRATE 25 MG TABLET GT SCH ×2 (09:21→17:23)
[2022-12-28] MEDS: ZINC SULFATE 220 MG CAPSULE GT SCH (09:22)
[2022-12-28] MEDS: FINASTERIDE (5 MG) 5 MG TABLET GT SCH (09:22)
[2022-12-28] MEDS: FERROUS SULFATE UDC 300 MG/5 ML UDC GT SCH ×3 (09:37→17:13)
[2022-12-28] MEDS: PROSOURCE / PROSTAT (PYXIS) 30 ML UDC GT SCH ×3 (09:38→17:51)
[2022-12-28] MEDS: POVIDONE-IODINE OINT 28.4 GM TUBE TP SCH ×2 (09:38→17:24)
[2022-12-28] MEDS: ENOXAPARIN SODIUM 30 MG/0.3 ML DISP.SYRIN SQ SCH (11:22)
[2022-12-28] MEDS ORDERED: JEVITY 1.2 CAL 1,000 ML BOTTLE GT PRN (13:00)
--- NOTE | 2022-12-28 15:22 | NUR ---
ENVIRONMENTAL SAMPLING TECHNICIAN NOTE INCREASED FEEDING TO 55ML/HR BUT PATIENT WASNT TOLERATING WELL, DECREASED TO 50ML/HR. GOAL IS 70ML/HR.
[2022-12-28 16:44] VITALS: BP 138/69
[2022-12-28] MEDS: CIPROFLOXACIN HCL 0.3% 5 ML BOTTLE EACHEYE SCH ×2 (17:53→21:38)
--- NOTE | 2022-12-28 18:56 | NUR ---
TELE SCHOOL PHOTOGRAPH EDITOR CLOSING NOTE PATIENT IS IN BED RESTING, EYES OPEN. PATIENT IS OBTUNDED, WITH TRACH ON VENTILATOR TOLERATING CURRENT SETTING WELL, S02 100%.; IN FOWLERS POSITION. PATIENT IS ON EXTERNAL GENERAL COUNSELOR, TELE MONITOR READING SB 56. G-TUBE IS PATENT, CLEAN AND DRESSING WERE CHANGED. TRACH DRESSING WAS CHANGED. WOUND CARE WAS DONE ORDERED. FEEDING JEVITY 1.2@ 50ML/HR, GOAL IS 70ML/HR. ASPIRATION PRECAUTIONS MAINTAINED. TRINH CATHETER IN PLACE, DRAINING TO A CLOUDY YELLOW URINE. IV SITE GLEN MIDLINE, G#18, CLEAN AND INTACT. REPOSITIONED TOLERATED. PATIENT SAFETY PRECAUTION ARE IN PLACE: BED AT THE LOWEST POSITION, LOCKED, SR X2.
[2022-12-28 20:00] VITALS: BP 132/70
--- NOTE | 2022-12-28 20:07 | NUR ---
REAGAN LESTER OPENING NOTES RECEIVED PATIENT IN BED, ON MODERATE HIGH BACKREST POSITION. ON MECHANICAL VENTILATOR VIA TRACHEOSTOMY TUBE WITH SETTING OF FiO2:40%, TV:525,AC:16, PEEP:5 SATURATING AT 98%. A/O X 1 OBTUNDED. ATTACHED PO TELE MONITORING DEVICE WITH READING OF SR 67. INCONTINENT USES DIAPER WITH INDWELLING TRINH CATHETER CONNECTED TO URINE BAG WITH NOTED URINE OUTPUT. NO S/S OF PAIN OR ANY DISTRESS AT THIS TIME.ON G-TUBE FEEDING JEVITY 1.2 OMID AT 50ML/HOUR MAX OF 70ML/HR BUT THE PATIENT CANT TOLERATE. NO S/S OF SOB NOTED AT THIS TIME. KEPT PATIENT WARM AND COMFORTABLE, KEPT SIDE RAILS UP X 3 ALL THE TIME. KEPT BED ON LOWER LOCKED POSITION. SUCTION SECRETIONS NEEDED, BREATHING TREATMENT GIVEN ORDERED. WILL CONTINUE TO MONITOR FOR ABHINAV.
[2022-12-28] MEDS: DOCUSATE SODIUM LIQ 100 MG/10 ML UDC GT SCH (21:38)
[2022-12-28] MEDS: ATORVASTATIN 40 MG TABLET GT SCH (21:38)
[2022-12-28] MEDS: TAMSULOSIN 0.4 MG CAP.SR.24H GT SCH (21:38)
[2022-12-29] VITALS (7 sets, daily range): BP systolic 144–173; BP diastolic 71–80
[2022-12-29] MEDS: DILTIAZEM HCL 30 MG TABLET GT SCH ×4 (00:07→17:25)
[2022-12-29] MEDS: ALBUTEROL FS 2.5 MG/3 ML VIAL.NEB NEB SCH ×7 (00:07→23:24)
[2022-12-29] MEDS: IPRATROPIUM NEB FS 0.5 MG/2.5 ML AMPUL.NEB NEB SCH ×7 (00:07→23:24)
[2022-12-29 06:09] LABS: BASOPHILS # (AUTO) 0.1 K/uL (0.0-0.2); BASOPHILS % (AUTO) 1.1 % (0.0-2.0); EOSINOPHILS % (AUTO) 9.2 % (0.0-6.0); HEMATOCRIT 26 % (39-51); HEMOGLOBIN 8.7 g/dL (13.5-17.5); LYMPHOCYTES # (AUTO) 1.2 K/uL (0.8-4.8); MEAN CORPUSCULAR HGB CONC 33 g/dl (31.0-36.0); MEAN CORPUSCULAR VOLUME 88 fL (80-96); MONOCYTES # (AUTO) 0.8 K/uL (0.1-1.30); MONOCYTES % (AUTO) 10.4 % (2.0-12.0); NEUTROPHILS # (AUTO) 4.6 K/uL (1.8-8.9); NEUTROPHILS % (AUTO) 62.3 % (43.0-81.0); PLATELET COUNT (AUTO) 158 K/uL (150-450); WHITE BLOOD COUNT (AUTO) 7.3 K/uL (4.3-11.0)
[2022-12-29 06:37] LABS: CALCIUM, SERUM 9.2 mg/dL (8.5-10.1); CREATININE 3.5 mg/dL (0.6-1.3); MAGNESIUM 2.3 mg/dL (1.8-2.4); PHOSPHORUS 4.1 mg/dL (2.5-4.9); POTASSIUM 3.9 mmol/L (3.5-5.1)
--- NOTE | 2022-12-29 06:43 | NUR ---
ASSEMBLY LINE MACHINE OPERATOR CLOSING NOTES PATIENT IS IN BED, ON MODERATE HIGH BACK REST PATIENT. ON MECHANICAL VENTILATOR VIA TRACH SATURATING WELL. WITH G-TUBE CONNECTED WITH JEVITY1.2 OMID INFUSING WELL. WITH IV ACCESS AT GLEN ML #18G WITH NS 1L AT 75ML/HR INFUSING WELL. ON BEDREST. NO S/S OF PAIN OR DISTRESS AT THIS TIME. SO EPISODES OF SOB/ ASPIRATION NOTED AT THIS TIME. PM CARE RENDERED. TURNED PATIENT FREQUENTLY. KEPT BED ON LOWER LOCKED POSITION, KEPT SIDE RAILS UP X 3 ALL THE TIME. KEPT CALL LIGHT WITHIN AT REACH. ALL DUE MEDICATIONS GIVEN AND ALL NEEDS ATTENDED. SAFETY PRECAUTIONS MAINTAINED. KEPT PATIENT WARM AND COMFORTABLE. WILL ENDORSED TO AM SHIFT FOR ABHINAV.
--- NOTE | 2022-12-29 07:00 | NUR ---
VENTURE CAPITALIST OPENING NOTES: RECEIVED PATIENT IN BED AWAKE, NON VERBAL, ON MECHANICAL VENT AND TRACH WITH SETTINGS OF FIO2 40%, TV 525,AC 16, PEEP 5. NO SOB OR CARDIAC DISTRESS NOTED. ON EARLY CHILDHOOD TEACHER ASSISTANT WITH CURRENT READING: SINUS RUTH @ 55BPM. NOTED WITH IV ACCESS ON GLEN MIDLINE, PATENT INTACT AND INFUSING IV FLUID NS @75ML/HR. ON G TUBE FEEDING JEVITY 1.2 OMID @50 ML/HR. TRINH CATHETER INTACT DRAINING CLEAR YELLOW COLORED URINE VIA GRAVITY. SAFERTY MEASURES MAINTAINED: BED LOCKED AND IN LOWEST POSITION, SIDE RAILS UP X3, CALL LIGHT WITHIN EASY REACH FOR HELP. WILL MONITOR PT ACCORDINGLY.
[2022-12-29] MEDS: PANTOPRAZOLE 40 MG/PACK PACK GT SCH (07:31)
[2022-12-29] MEDS: PIPERACILLIN /TAZOBACTAM 3.375 G in IV D5W 100 ML IV SCH ×2 (07:32→15:57)
[2022-12-29] MEDS: ACETAMINOPHEN 650 MG/20.3 ML UDC GT SCH ×2 (08:26→16:42)
[2022-12-29] MEDS: FERROUS SULFATE UDC 300 MG/5 ML UDC GT SCH ×3 (08:26→16:42)
[2022-12-29] MEDS: CHLORHEXIDINE GLUCONATE 15 ML UDC MM SCH ×2 (08:27→21:08)
[2022-12-29] MEDS: ASCORBIC ACID 500 MG TABLET GT SCH (08:27)
[2022-12-29] MEDS: LEVETIRACETAM SOL (5 ML) 100 MG/ML UDC GT SCH ×2 (08:27→16:42)
[2022-12-29] MEDS: LamoTRIgine 100 MG TABLET GT SCH ×2 (08:28→16:42)
[2022-12-29] MEDS: MULTIVIT W/MINERALS 1 TAB TABLET GT SCH (08:28)
[2022-12-29] MEDS: FINASTERIDE (5 MG) 5 MG TABLET GT SCH (08:28)
--- NOTE | 2022-12-29 08:45 | NUR ---
WOUND CARE CONSULT: PT PRESENTS WITH LEFT EAR INTACT DEEP TISSUE INJURY, SACRAL INTACT DEEP TISSUE INJURY WITH SCARRING, RT SHOULDER SCAR, RT AND LEFT HIP SCARRING, DRY ABRASIONS/SCABS TO ABDOMEN, AND LOWER EXTREMITY WOUNDS, ALL PRESENT ON ADMISSION. DR ROWE FOLLOWING LOWER EXTREMITY WOUNDS. DISCUSSED SKIN PROTECTION WITH NURSING STAFF. PT IS ON [place] ISOFLEX LOW AIRLOSS BED. MD IN AGREEMENT WITH PLAN OF CARE.
[2022-12-29] MEDS: LISINOPRIL (5MG) 5 MG TABLET GT SCH (08:46)
[2022-12-29] MEDS: METOPROLOL TARTRATE 25 MG TABLET GT SCH ×2 (08:46→16:46)
[2022-12-29] MEDS: ENOXAPARIN SODIUM 30 MG/0.3 ML DISP.SYRIN SQ SCH (08:50)
[2022-12-29] MEDS: ZINC SULFATE 220 MG CAPSULE GT SCH (08:53)
[2022-12-29] MEDS: POVIDONE-IODINE OINT 28.4 GM TUBE TP SCH ×2 (08:53→17:07)
[2022-12-29] MEDS: PROSOURCE / PROSTAT (PYXIS) 30 ML UDC GT SCH ×3 (08:59→16:43)
[2022-12-29] MEDS ORDERED: Z GUARD REMEDY 4 OZ OINT TP PRN (09:00)
[2022-12-29] MEDS: CIPROFLOXACIN HCL 0.3% 5 ML BOTTLE EACHEYE SCH ×4 (09:15→20:14)
[2022-12-29] MEDS: Z GUARD REMEDY 4 OZ OINT TP SCH (09:16)
--- NOTE | 2022-12-29 10:57 | NUR ---
RN NOTES: UNABLE TO CONTACT DIETARY CALLED TWICE. ORDERED DIETARY CONSULT, PT UNABLE TO TOLERATE MORE THAN 50ML JEVITY. PER RUBBER COMPOUNDER MIXER ATTEMPTED TO INCREASED AT 55ML/HR BUT PT HAD EPISODE OF VOMITING.
[2022-12-29] MEDS: IV NS 0.9% 1,000 ML IV PRN (12:04)
--- NOTE | 2022-12-29 18:47 | NUR ---
OPTICAL INSTRUMENT ASSEMBLY SUPERVISOR CLOSING NOTES: PATIENT IN BED AWAKE, NON VERBAL, ON MECHANICAL VENT AND TRACH WITH SETTINGS OF FIO2 40%, TV 525,AC 16, PEEP 5. NO SOB OR CARDIAC DISTRESS NOTED. ON LAUNDRY ROUTE DRIVER WITH CURRENT READING: SINUS RHYTHM @ 61BPM. NOTED WITH IV ACCESS ON GLEN MIDLINE, PATENT INTACT AND INFUSING IV FLUID NS @75ML/HR. ON G TUBE FEEDING JEVITY 1.2 OMID @50 ML/HR. TRINH CATHETER INTACT DRAINING CLEAR YELLOW COLORED URINE VIA GRAVITY. WOUND CARE TREATMENT DONE. TURNING AND REPOSITIONING Q 2HRS.SAFETY MEASURES MAINTAINED: BED LOCKED AND IN LOWEST POSITION, SIDE RAILS UP X3, CALL LIGHT WITHIN EASY REACH FOR HELP. WILL ENDORSED TO COMPUTER TECH RN FOR ABHINAV.
--- NOTE | 2022-12-29 19:35 | NUR ---
COOKIE PADDER OPENING NOTES: PATIENT IN BED AWAKE, NON VERBAL, ON MECHANICAL VENT AND TRACH WITH SETTINGS OF FIO2 40%, TV 525,AC 16, PEEP 5. NO SOB OR CARDIAC DISTRESS NOTED. ON WASTEWATER SUPERVISOR WITH CURRENT READING: SINUS RHYTHM @ 61BPM. NOTED WITH IV ACCESS ON GLEN MIDLINE, PATENT INTACT AND INFUSING IV FLUID NS @75ML/HR. ON G TUBE FEEDING JEVITY 1.2 OMID @50 ML/HR. TRINH CATHETER INTACT DRAINING CLEAR YELLOW COLORED URINE VIA GRAVITY. BED LOCKED AND IN LOWEST POSITION, SIDE RAILS UP X3, CALL LIGHT WITHIN EASY REACH FOR HELP.
[2022-12-29] MEDS: TAMSULOSIN 0.4 MG CAP.SR.24H GT SCH (21:08)
[2022-12-29] MEDS: DOCUSATE SODIUM LIQ 100 MG/10 ML UDC GT SCH (21:08)
[2022-12-29] MEDS: ATORVASTATIN 40 MG TABLET GT SCH (21:08)
[2022-12-30] VITALS: BP 141/69
[2022-12-30] MEDS: PIPERACILLIN /TAZOBACTAM 3.375 G in IV D5W 100 ML IV SCH ×4 (00:23→23:07)
[2022-12-30] MEDS: DILTIAZEM HCL 30 MG TABLET GT SCH ×5 (00:26→23:57)
[2022-12-30] MEDS: JEVITY 1.2 CAL 1,000 ML BOTTLE GT PRN (02:43)
[2022-12-30 04:00] VITALS: BP 138/67
[2022-12-30] MEDS: ALBUTEROL FS 2.5 MG/3 ML VIAL.NEB NEB SCH ×6 (04:02→23:40)
[2022-12-30] MEDS: IPRATROPIUM NEB FS 0.5 MG/2.5 ML AMPUL.NEB NEB SCH ×6 (04:02→23:40)
--- NOTE | 2022-12-30 06:16 | NUR ---
RN NOTE ACCIDENTAL DROP OF THE DILTIAZEM ON THE FLOOR DISCARDED MED AND RECEIVED ANOTHER DOSE.
--- NOTE | 2022-12-30 06:48 | NUR ---
WARP KNITTING MACHINE OPERATOR CLOSING NOTES: PATIENT IN BED AWAKE, NON VERBAL, ON MECHANICAL VENT AND TRACH WITH SETTINGS OF FIO2 40%, TV 525,AC 16, PEEP 5. NO SOB OR CARDIAC DISTRESS NOTED. ON WOOD SKI MAKER WITH CURRENT READING: SB/SR @ 59-62 BPM. NOTED WITH IV ACCESS ON GLEN MIDLINE, PATENT INTACT AND INFUSING IV FLUID NS @75ML/HR. ON G TUBE FEEDING JEVITY 1.2 OMID @50 ML/HR NO RESIDUAL NOTED. TRINH CATHETER INTACT DRAINING CLEAR YELLOW COLORED URINE VIA GRAVITY. BED LOCKED AND IN LOWEST POSITION, SIDE RAILS UP X3, CALL LIGHT WITHIN EASY REACH FOR HELP. PT REPOSITIONED Q2HRS AND PRN. WILL ENDORSE CARE TO DAY SHIFT NURSE.
[2022-12-30 07:03] LABS: BASOPHILS # (AUTO) 0.1 K/uL (0.0-0.2); BASOPHILS % (AUTO) 1.2 % (0.0-2.0); EOSINOPHILS % (AUTO) 9.2 % (0.0-6.0); HEMATOCRIT 25 % (39-51); HEMOGLOBIN 8.4 g/dL (13.5-17.5); LYMPHOCYTES # (AUTO) 1.4 K/uL (0.8-4.8); LYMPHOCYTES % (AUTO) 17.6 % (20.0-44.0); MEAN CORPUSCULAR HGB CONC 33 g/dl (31.0-36.0); MEAN CORPUSCULAR VOLUME 89 fL (80-96); MONOCYTES # (AUTO) 0.6 K/uL (0.1-1.30); MONOCYTES % (AUTO) 7.8 % (2.0-12.0); NEUTROPHILS # (AUTO) 5.2 K/uL (1.8-8.9); NEUTROPHILS % (AUTO) 64.2 % (43.0-81.0); PLATELET COUNT (AUTO) 162 K/uL (150-450); RED BLOOD CELL COUNT(AUTO) 2.85 MIL/uL (4.5-6.0); WHITE BLOOD COUNT (AUTO) 8.1 K/uL (4.3-11.0)
[2022-12-30 07:17] LABS: CALCIUM, SERUM 9.3 mg/dL (8.5-10.1); CREATININE 3.4 mg/dL (0.6-1.3); MAGNESIUM 2.3 mg/dL (1.8-2.4); PHOSPHORUS 3.9 mg/dL (2.5-4.9)
--- NOTE | 2022-12-30 07:20 | NUR ---
RN OPENING NOTE RECEIVED PATIENT IN BED AWAKE, A/O X0, NON-VERBAL, OPENS EYES. WITH TRACH TO VENT, SETTINGS TOLERATING WELL. ON TELE MONITOR SHOWING SINUS RHYTHM, HR @65. NOTED WITH MIDLINE ON LEFT UPPER ARM #18G, WITH NS @ 75 ML/HR RUNNING. WITH G-TUBE INTACT AND PATENT WITH JEVITY 1.2 @50 ML/HR RUNNING, TOLERATING WELL. HOB ELEVATED AT ALL TIMES. WITH F/C INTACT, DRAINING CLEAR YELLOW URINE VIA GRAVITY. SAFETY MEASURE IN PLACE. BED IN LOW AND LOCKED POSITION, SIDE RAILS UP X3, CALL LIGHT PLACE WITHIN EASY REACH. WILL CONTINUE TO MONITOR PATIENT.
[2022-12-30 08:00] VITALS: BP 152/63
[2022-12-30] MEDS: FERROUS SULFATE UDC 300 MG/5 ML UDC GT SCH ×3 (08:48→17:06)
[2022-12-30] MEDS: ACETAMINOPHEN 650 MG/20.3 ML UDC GT SCH ×2 (08:48→17:06)
[2022-12-30] MEDS: LEVETIRACETAM SOL (5 ML) 100 MG/ML UDC GT SCH ×2 (08:48→17:05)
[2022-12-30] MEDS: CHLORHEXIDINE GLUCONATE 15 ML UDC MM SCH ×2 (08:48→20:46)
[2022-12-30] MEDS: LamoTRIgine 100 MG TABLET GT SCH ×2 (08:49→17:06)
[2022-12-30] MEDS: FINASTERIDE (5 MG) 5 MG TABLET GT SCH (08:49)
[2022-12-30] MEDS: ZINC SULFATE 220 MG CAPSULE GT SCH (08:49)
[2022-12-30] MEDS: MULTIVIT W/MINERALS 1 TAB TABLET GT SCH (08:49)
[2022-12-30] MEDS: ASCORBIC ACID 500 MG TABLET GT SCH (08:49)
[2022-12-30] MEDS: METOPROLOL TARTRATE 25 MG TABLET GT SCH ×2 (08:50→17:06)
[2022-12-30] MEDS: PROSOURCE / PROSTAT (PYXIS) 30 ML UDC GT SCH ×3 (08:50→17:07)
[2022-12-30] MEDS: LISINOPRIL (5MG) 5 MG TABLET GT SCH (08:50)
[2022-12-30] MEDS: ENOXAPARIN SODIUM 30 MG/0.3 ML DISP.SYRIN SQ SCH (08:52)
[2022-12-30] MEDS: CIPROFLOXACIN HCL 0.3% 5 ML BOTTLE EACHEYE SCH ×4 (08:57→20:46)
[2022-12-30] MEDS: POVIDONE-IODINE OINT 28.4 GM TUBE TP SCH ×2 (08:57→17:08)
[2022-12-30] MEDS: Z GUARD REMEDY 4 OZ OINT TP SCH (08:58)
[2022-12-30] MEDS: PANTOPRAZOLE 40 MG/PACK PACK GT SCH (08:59)
--- NOTE | 2022-12-30 18:40 | NUR ---
RN CLOSING NOTE PATIENT IN BED ASLEEP, NON-VERBAL, OPENS EYES. PATIENT WITH TRACH TO VENT, WITH THE FOLLOWING SETTINGS: AC 16, TV 525, FIO2 40%, PEEP 5, SETTINGS TOLERATED WELL. CONTINUE ON TELE MONITOR SHOWING SINUS RHYTHM, HR @62. WITH MIDLINE ON LEFT UPPER ARM #18G, WITH NS @ 75 ML/HR RUNNING. WITH G-TUBE INTACT AND PATENT JEVITY 1.2 @50 ML/HR RUNNING, TOLERATED WELL. HOB ELEVATED AT ALL TIMES. ASPIRATIONS PRECAUTIONS OBSERVED. F/C INTACT, DRAINING CLEAR YELLOW URINE VIA GRAVITY. SAFETY MEASURE MAINTAINED. BED IN LOW AND LOCKED POSITION, SIDE RAILS UP X3, CALL LIGHT PLACE WITHIN EASY REACH. WILL ENDORSE TO NEXT SHIFT FOR CONTINUITY OF CARE.
--- NOTE | 2022-12-30 19:10 | NUR ---
RN NOTES: RECEIVED LYING ON BED, EYES CLOSES, NON VERBAL, PRESENT AT BED SIDE, ON MECHANICAL VENTILATOR,FiO2: 40%, TV:525 AC:16 PEEP:5 , NON LABORED BREATHING, ON TELE MONITOR SINUS RHYTHM- RATE-60'S, CONTINENT ON TRINH CATH f-16/10ML DRAINING INTO YELLOWISH COLORED URINE, NO SEDIMENTS, NO HEMATURIA NOTED, PEG TUBE IN SITE, WITH FEEDING OF JEVITY 1.5 AT 50 ML/HR ONGOING VIA FEEDING PUMP, KEPT ON SEMI-HIGH FOWLERS POSTION, ASPIRATION PRECAUTION OBSERVED, GLEN ML G#18 INTACT. WITH IVF OF NS AT 75 ML/HR ONGOING, CONTINUE ON HYDRATION AND ANTIBIOTICS, FOR POSSIBLE DISCHARGE ON 12/31-01/01, STILL AWAITING FOR URINE C/S RESULT.
[2022-12-30 20:00] VITALS: BP 144/68
[2022-12-30] MEDS: ATORVASTATIN 40 MG TABLET GT SCH (21:31)
[2022-12-30] MEDS: DOCUSATE SODIUM LIQ 100 MG/10 ML UDC GT SCH (21:31)
[2022-12-30] MEDS: TAMSULOSIN 0.4 MG CAP.SR.24H GT SCH (21:31)
--- NOTE | 2022-12-30 23:57 | NUR ---
RN NOTES: REPOSITIONED, UCTIONED, NEBULIZATION RENDERED BY RT, BP-153/84 AZ-65, DUE MEDS GIVEN.
[2022-12-31] VITALS (7 sets, daily range): BP systolic 141–168; BP diastolic 63–81
[2022-12-31] MEDS: JEVITY 1.2 CAL 1,000 ML BOTTLE GT PRN (00:08)
--- NOTE | 2022-12-31 00:17 | NUR ---
REAGAN NOTES: -FEEDING CONSUMED, NEW BOTTLE STARTED AT 0009, CHECK PATENCY, RESIDUAL-30CC, PLACED BACK, PATENCY CHECKED, FEEDING RESUMED JEVITY 1.5 AT 50 ML/HR, FLUSHING DONE.
[2022-12-31] MEDS: IPRATROPIUM NEB FS 0.5 MG/2.5 ML AMPUL.NEB NEB SCH ×6 (03:31→23:35)
[2022-12-31] MEDS: ALBUTEROL FS 2.5 MG/3 ML VIAL.NEB NEB SCH ×6 (03:31→23:35)
[2022-12-31] MEDS: DILTIAZEM HCL 30 MG TABLET GT SCH ×3 (05:40→17:29)
--- NOTE | 2022-12-31 05:40 | NUR ---
RN NOTES: SPONGE BATH RENDERED, DRESSING CHANGE ON THE SACROCOCCYX AND PEG TUBE AREA, OFF LOADING OBSERVED, REPOSITIONED, IVF RESUMED NS AT 75 ML/HR, ORAL CARE DONE, LATEST BP-162/76 MS-65, CARDIZEM GIVEN.
[2022-12-31 07:11] LABS: BASOPHILS # (AUTO) 0.1 K/uL (0.0-0.2); EOSINOPHILS % (AUTO) 10.5 % (0.0-6.0); HEMATOCRIT 25 % (39-51); LYMPHOCYTES # (AUTO) 1.8 K/uL (0.8-4.8); LYMPHOCYTES % (AUTO) 22.4 % (20.0-44.0); MEAN CORPUSCULAR HGB CONC 33 g/dl (31.0-36.0); MEAN CORPUSCULAR VOLUME 90 fL (80-96); MONOCYTES # (AUTO) 0.6 K/uL (0.1-1.30); MONOCYTES % (AUTO) 7.9 % (2.0-12.0); NEUTROPHILS # (AUTO) 4.7 K/uL (1.8-8.9); NEUTROPHILS % (AUTO) 58.2 % (43.0-81.0); PLATELET COUNT (AUTO) 184 K/uL (150-450); RED BLOOD CELL COUNT(AUTO) 2.73 MIL/uL (4.5-6.0)
--- NOTE | 2022-12-31 07:22 | NUR ---
GROUND TRANSPORTATION OPERATOR OPENING NOTES RECEIVED PATIENT AWAKE IN BED IN NO ACUTE SIGNS OF DISTRESS. HOB ELEVATED. PT IS A/O X0, NON-VERBAL, OPENS EYES AND RESPONSIVE TO TACTILE/PAIN STIMULI. PT WITH TRACH PORTEX 7.5 CONNECTED TO MECHANICAL VENT @ PRESCRIBED SETTINGS, TOLERATING CURRENT SETTINGS WELL WITH NO SOB NOTED. TELE-MONITOR SHOWS SR, HR 63 AT THIS TIME. MIDLINE ON GLEN #18G WITH NS @ 75 ML/HR RUNNING. G-TUBE IN PLACE AND PATENT WITH JEVITY 1.2 @50 ML/HR IN PROGRESS, TOLERATING WELL. ASPIRATION PRECAUTIONS MAINTAINED AT ALL TIMES. TRINH INTACT AND DRAINING CLEAR YELLOW URINE VIA GRAVITY. SAFETY MEASURES IN PLACE: BED IN LOW LOCKED POSITION, SIDE-RAILS UP X3, CALL- LIGHT WITHIN EASY REACH. WILL CONTINUE TO MONITOR PATIENT ACCORDINGLY.
--- NOTE | 2022-12-31 07:30 | NUR ---
RN NOTES: REPOSITIONED, SINUS RHYTHM-65, ON MECHANICAL VENTILATOR, TRINH CATH DRAINING INTO YELLOWISH COLORED URINE, ADEQUATE OUTPUT, NO SEDIMENTS, NO HEMATURIA, FEEDING ON GOING, LABS DONE, TO F/U RESULT, CONTINUE IV HYDRATION, ENDORSED FOR CONTINUITY OF CARE.
[2022-12-31] MEDS: PANTOPRAZOLE 40 MG/PACK PACK GT SCH (07:40)
[2022-12-31 07:51] LABS: CALCIUM, SERUM 9.2 mg/dL (8.5-10.1); CREATININE 3.4 mg/dL (0.6-1.3); MAGNESIUM 2.4 mg/dL (1.8-2.4); POTASSIUM 3.9 mmol/L (3.5-5.1)
[2022-12-31] MEDS: PIPERACILLIN /TAZOBACTAM 3.375 G in IV D5W 100 ML IV SCH ×2 (08:16→15:22)
[2022-12-31] MEDS: ASCORBIC ACID 500 MG TABLET GT SCH (09:00)
[2022-12-31] MEDS: FINASTERIDE (5 MG) 5 MG TABLET GT SCH (09:00)
[2022-12-31] MEDS: MULTIVIT W/MINERALS 1 TAB TABLET GT SCH (09:01)
[2022-12-31] MEDS: LamoTRIgine 100 MG TABLET GT SCH ×2 (09:01→16:20)
[2022-12-31] MEDS: ACETAMINOPHEN 650 MG/20.3 ML UDC GT SCH ×2 (09:01→16:20)
[2022-12-31] MEDS: LISINOPRIL (5MG) 5 MG TABLET GT SCH (09:02)
[2022-12-31] MEDS: METOPROLOL TARTRATE 25 MG TABLET GT SCH ×2 (09:03→16:29)
[2022-12-31] MEDS: LEVETIRACETAM SOL (5 ML) 100 MG/ML UDC GT SCH ×2 (09:04→16:22)
[2022-12-31] MEDS: CHLORHEXIDINE GLUCONATE 15 ML UDC MM SCH ×2 (09:04→21:56)
[2022-12-31] MEDS: FERROUS SULFATE UDC 300 MG/5 ML UDC GT SCH ×3 (09:04→16:22)
[2022-12-31] MEDS: POVIDONE-IODINE OINT 28.4 GM TUBE TP SCH ×2 (09:07→16:23)
[2022-12-31] MEDS: Z GUARD REMEDY 4 OZ OINT TP SCH (09:09)
[2022-12-31] MEDS: CIPROFLOXACIN HCL 0.3% 5 ML BOTTLE EACHEYE SCH ×4 (09:10→21:56)
[2022-12-31] MEDS: ENOXAPARIN SODIUM 30 MG/0.3 ML DISP.SYRIN SQ SCH (09:12)
[2022-12-31] MEDS: PROSOURCE / PROSTAT (PYXIS) 30 ML UDC GT SCH ×3 (09:29→16:25)
[2022-12-31] MEDS: ZINC SULFATE 220 MG CAPSULE GT SCH (09:31)
[2022-12-31] MEDS: hydrALAZINE HCL 25 MG TABLET GT PRN (12:42)
--- NOTE | 2022-12-31 18:41 | NUR ---
ANATOMY PROFESSOR CLOSING NOTES PATIENT IN BED AWAKE AT THIS TIME AND LYING AT SEMI-FOWLERS POSITION. A/O X0, NON-VERBAL, OPENS EYES AND RESPONSIVE TO TACTILE/PAIN STIMULI. PT WITH TRACH PORTEX 7.5 CONNECTED TO MECHANICAL VENT @ PRESCRIBED SETTINGS, TOLERATING CURRENT SETTINGS WELL WITH NO SOB NOTED, SATURATING WELL. TELE-MONITOR SHOWS CURRENT READING OF SR, HR ON THE 60'S. MIDLINE ON GLEN #18G WITH IV ABX ZOSYN @ 25 ML/HR INFUSING WELL AT THIS TIME. G-TUBE IN PLACE AND PATENT WITH FEEDING OF JEVITY 1.2 @50 ML/HR IN PROGRESS, TOLERATING WELL. ASPIRATION PRECAUTIONS MAINTAINED AT ALL TIMES. TRINH INTACT AND DRAINING CLEAR YELLOW URINE VIA GRAVITY, TRINH CARE DONE. PT TURNED AND REPOSITIONED Q 2HRS AND AND PRN. ALL NEEDS/CARE PROVIDED WELL. SAFETY MEASURES IN PLACE: BED IN LOWEST LOCKED POSITION, SIDE-RAILS UP X3, CALL- LIGHT WITHIN EASY REACH. WILL ENDORSE ABHINAV TO STEAM BONE PRESS TENDER NURSE.
--- NOTE | 2022-12-31 19:30 | NUR ---
INGOT PASSER OPENING NOTES RECEIVED PATIENT IN BED, SLEEPING AT THIS TIME, IN SEMI-FOWLERS POSITION. A/O X0, NON-VERBAL, OPENS EYES AND RESPONSIVE TO TACTILE/PAIN STIMULI. PT WITH TRACH PORTEX 7.5 CONNECTED TO MECHANICAL VENT @ PRESCRIBED SETTINGS, TOLERATING CURRENT SETTINGS WELL WITH NO SOB NOTED, SATURATING WELL. TELE-MONITOR SHOWS CURRENT READING OF SR, 62 HR. MIDLINE ON GLEN #18G WITH IV ABX ZOSYN @ 25 ML/HR INFUSING WELL AT THIS TIME. WILL CONTINUE NS @ 75 ML/HR WHEN ZOSYN IS FINISHED INFUSING. G-TUBE IN PLACE AND PATENT WITH FEEDING OF JEVITY 1.2 @50 ML/HR IN PROGRESS, TOLERATING WELL. ASPIRATION PRECAUTIONS MAINTAINED AT ALL TIMES. TRINH INTACT AND DRAINING CLEAR YELLOW URINE VIA GRAVITY. SAFETY MEASURES IN PLACE: BED IN LOWEST LOCKED POSITION, SIDE-RAILS UP X3, CALL- LIGHT WITHIN EASY REACH. WILL CONTINUE TO MONITOR AND ASSIST.
[2022-12-31] MEDS: ATORVASTATIN 40 MG TABLET GT SCH (21:56)
[2022-12-31] MEDS: TAMSULOSIN 0.4 MG CAP.SR.24H GT SCH (21:56)
[2022-12-31] MEDS: DOCUSATE SODIUM LIQ 100 MG/10 ML UDC GT SCH (21:56)
[2023-01-01] VITALS: BP 142/75
[2023-01-01] MEDS: IV NS 0.9% 1,000 ML IV PRN (00:16)
[2023-01-01] MEDS: PIPERACILLIN /TAZOBACTAM 3.375 G in IV D5W 100 ML IV SCH ×2 (00:35→07:40)
[2023-01-01] MEDS: DILTIAZEM HCL 30 MG TABLET GT SCH ×3 (00:51→12:10)
[2023-01-01] MEDS: IPRATROPIUM NEB FS 0.5 MG/2.5 ML AMPUL.NEB NEB SCH ×4 (03:18→15:25)
[2023-01-01] MEDS: ALBUTEROL FS 2.5 MG/3 ML VIAL.NEB NEB SCH ×4 (03:19→15:25)
[2023-01-01 04:00] VITALS: BP 145/62
[2023-01-01] MEDS: JEVITY 1.2 CAL 1,000 ML BOTTLE GT PRN (04:55)
[2023-01-01 06:21] LABS: BASOPHILS # (AUTO) 0.1 K/uL (0.0-0.2); EOSINOPHILS % (AUTO) 8.8 % (0.0-6.0); HEMATOCRIT 27 % (39-51); HEMOGLOBIN 8.6 g/dL (13.5-17.5); LYMPHOCYTES # (AUTO) 1.5 K/uL (0.8-4.8); LYMPHOCYTES % (AUTO) 15.7 % (20.0-44.0); MEAN CORPUSCULAR HGB CONC 32 g/dl (31.0-36.0); MEAN CORPUSCULAR VOLUME 90 fL (80-96); MONOCYTES # (AUTO) 0.7 K/uL (0.1-1.30); NEUTROPHILS # (AUTO) 6.3 K/uL (1.8-8.9); NEUTROPHILS % (AUTO) 67.5 % (43.0-81.0); PLATELET COUNT (AUTO) 192 K/uL (150-450); RED BLOOD CELL COUNT(AUTO) 3.01 MIL/uL (4.5-6.0); WHITE BLOOD COUNT (AUTO) 9.3 K/uL (4.3-11.0)
[2023-01-01 06:39] LABS: CALCIUM, SERUM 9.5 mg/dL (8.5-10.1); CREATININE 3.2 mg/dL (0.6-1.3)
--- NOTE | 2023-01-01 06:53 | NUR ---
TIRE REBUILDER CLOSING NOTES PATIENT IN BED, SLEEPING AT THIS TIME, IN SEMI-FOWLERS POSITION. A/O X0, NON-VERBAL, OPENS EYES AND RESPONSIVE TO TACTILE/PAIN STIMULI. PT STABLE ON MECHANICAL VENTILATOR, WITH TRACH PORTEX 7.5 CONNECTED TO MECHANICAL VENT @ PRESCRIBED SETTINGS, TOLERATING CURRENT SETTINGS WELL WITH NO SOB NOTED, SATURATING WELL. TELE-MONITOR SHOWS CURRENT READING OF SR, 69 HR. MIDLINE ON GLEN #18G, INFUSING NS @ 75 ML/HR. G-TUBE IN PLACE AND PATENT WITH FEEDING OF JEVITY 1.2 @50 ML/HR IN PROGRESS, TOLERATING WELL. ASPIRATION PRECAUTIONS MAINTAINED AT ALL TIMES. TRINH INTACT AND DRAINING CLEAR YELLOW URINE VIA GRAVITY, TOTAL OUTPUT OF 800 ML. TURNED AND REPOSITIONED Q2HR. ALL CARE PROVIDED AND MEDS TOLERATED WELL. SAFETY MEASURES MAINTAINED: BED IN LOWEST LOCKED POSITION, SIDE-RAILS UP X3, CALL- LIGHT WITHIN EASY REACH. WILL ENDORSE ABHINAV TO DAY SHIFT NURSE.
[2023-01-01 07:00] VITALS: BP 133/68
--- NOTE | 2023-01-01 07:23 | NUR ---
PRODUCTION RECORDER OPENING NOTES PATIENT RECEIVED ASLEEP IN BED, AROUSES EASILY TO TACTILE AND PAIN STIMULI. HOB ELEVATED. PT IS A/O X0, NON-VERBAL WITH TRACH PORTEX 7.5 ATTACHED TO MECHANICAL VENT @ PRESCRIBED SETTINGS, TOLERATING CURRENT SETTINGS WELL WITH NO ACUTE RESPIRATORY DISTRESS NOTED. TELE-MONITOR SHOWS SR, HR 61 AT THIS TIME. MIDLINE ON GLEN #18G WITH NS INFUSING WELL @ 75 ML/HR. G-TUBE IN PLACE AND PATENT WITH FEEDING OF JEVITY 1.2 @50ML/HR IN PROGRESS, TOLERATING WELL. ASPIRATION PRECAUTIONS MAINTAINED. TRINH INTACT AND DRAINING CLEAR YELLOW URINE VIA GRAVITY. SAFETY MEASURES IN PLACE: BED IN LOW LOCKED POSITION, SIDE-RAILS UP X3, CALL- LIGHT WITHIN EASY REACH. WILL CONTINUE TO MONITOR PATIENT
[2023-01-01] MEDS: PANTOPRAZOLE 40 MG/PACK PACK GT SCH (07:38)
[2023-01-01] MEDS: LamoTRIgine 100 MG TABLET GT SCH ×2 (08:35→16:34)
[2023-01-01] MEDS: ENOXAPARIN SODIUM 30 MG/0.3 ML DISP.SYRIN SQ SCH (08:36)
[2023-01-01] MEDS: FINASTERIDE (5 MG) 5 MG TABLET GT SCH (08:37)
[2023-01-01] MEDS: POVIDONE-IODINE OINT 28.4 GM TUBE TP SCH ×2 (08:38→16:43)
[2023-01-01] MEDS: CIPROFLOXACIN HCL 0.3% 5 ML BOTTLE EACHEYE SCH ×3 (08:38→16:43)
[2023-01-01] MEDS: LISINOPRIL (5MG) 5 MG TABLET GT SCH (08:39)
[2023-01-01] MEDS: METOPROLOL TARTRATE 25 MG TABLET GT SCH ×2 (08:39→16:42)
[2023-01-01] MEDS: ACETAMINOPHEN 650 MG/20.3 ML UDC GT SCH ×2 (08:40→16:34)
[2023-01-01] MEDS: FERROUS SULFATE UDC 300 MG/5 ML UDC GT SCH ×3 (08:40→16:35)
[2023-01-01] MEDS: LEVETIRACETAM SOL (5 ML) 100 MG/ML UDC GT SCH ×2 (08:40→16:35)
[2023-01-01] MEDS: CHLORHEXIDINE GLUCONATE 15 ML UDC MM SCH (08:40)
[2023-01-01] MEDS: ASCORBIC ACID 500 MG TABLET GT SCH (08:40)
[2023-01-01] MEDS: MULTIVIT W/MINERALS 1 TAB TABLET GT SCH (08:40)
[2023-01-01] MEDS: Z GUARD REMEDY 4 OZ OINT TP SCH (08:44)
[2023-01-01] MEDS: ZINC SULFATE 220 MG CAPSULE GT SCH (08:45)
[2023-01-01] MEDS: PROSOURCE / PROSTAT (PYXIS) 30 ML UDC GT SCH ×3 (08:46→16:34)
[2023-01-01] MEDS ORDERED: ALBUT2 NEB (12:51)
[2023-01-01] MEDS ORDERED: NORM10004 IV (12:51)
[2023-01-01] MEDS ORDERED: IPRA0.2S9 NEB (12:51)
[2023-01-01] MEDS ORDERED: NA P133E RC (12:51)
[2023-01-01] MEDS ORDERED: ENOX30DI SQ (12:51)
[2023-01-01] MEDS ORDERED: Z Guard Remedy TP ×2 (12:51)
[2023-01-01] MEDS ORDERED: Multivit W/Minerals GT (12:51)
[2023-01-01] MEDS ORDERED: HYDR-4076 GT (12:51)
[2023-01-01] MEDS ORDERED: METO25TA20 GT (12:51)
[2023-01-01] MEDS ORDERED: MAGN400O6 GT (12:51)
[2023-01-01] MEDS ORDERED: Prosource GT (12:51)
[2023-01-01] MEDS ORDERED: ASCO500T21 GT (12:51)
[2023-01-01] MEDS ORDERED: PIPE3.379 IV (12:51)
[2023-01-01] MEDS ORDERED: Tamsulosin GT (12:51)
[2023-01-01] MEDS ORDERED: LACT-209 GT (12:51)
[2023-01-01] MEDS ORDERED: PANT40SU2 GT (12:51)
[2023-01-01] MEDS ORDERED: CIPR5DRO18 EACHEYE (12:51)
[2023-01-01] MEDS ORDERED: LAMO100T2 GT (12:51)
[2023-01-01] MEDS ORDERED: LEVE100S GT (12:51)
[2023-01-01] MEDS ORDERED: FERR300L GT (12:51)
[2023-01-01] MEDS ORDERED: Zinc Sulfate GT (12:51)
[2023-01-01] MEDS ORDERED: FINA5TAB3 GT (12:51)
[2023-01-01] MEDS ORDERED: ONDA4TAB11 GT (12:51)
[2023-01-01] MEDS ORDERED: LISI-768 GT (12:51)
[2023-01-01] MEDS ORDERED: MEROPENEM 500 MG in IV NS 0.9% 50 ML IV SCH (14:00)
--- NOTE | 2023-01-01 16:36 | NUR ---
RN NOTES PATIENT FOR [facility] REAGAN NI CALLED AND REPORT GIVEN TO REAGAN MENDEZ OF [facility]. PT'S ALSO CALLED AND INFORMED.
--- NOTE | 2023-01-01 16:54 | NUR ---
RECEIVED PATIENT ON MD ORDERED VENT SETTINGS. HAS A TRACH PORTEX 7.5 CUFFED. AIRWAY PATENT AND SECURE. INLINE HHN TXS MERVAT WELL WITH NO ADVERSE REACTION NOTED. Q2 VENT CHECK, SUCTION PRN. AMBU BAG AND EMERGENCY TRACH AT THE BEDSIDE. VENT PLUGGED INTO RED OUTLET. ALARMS SET AND AUDIBLE. SMALL YELLOW SECRETIONS NOTED.
[2023-01-01 17:07] VITALS: BP 156/74
--- NOTE | 2023-01-01 17:56 | NUR ---
RN DISCHARGED NOTES [facility] STABLE CONDITION. A/O X0. [id number], OPEN EYES, RESPONSIVE TO TACTILE AND PAIN STIMULI. V/S TAKEN, STABLE AND RECORDED. PHOTOS OF SKIN ISSUES TAKEN AND FILED ON HIS CHART. PT HAS NO BELONGINGS. GLEN MIDLINE G#18 NOT REMOVE, PT WILL CONTINUE TO RECEIVED ABX ZOSYN 3.375 MG BID X4 DAYS MORE AT THE SNF. CALLED AND REPORT GIVEN TO REAGAN MENDEZ EARLIER. TRINH CATHETER IN PLACE DRAINING CLEAR YELLOW URINE OUTPUT. G-TUBE IN PLACE AND PATENT. TELE-BOX REMOVED AND HANDED BACK TO SERVICE DELIVERY MANAGEMENT CONSULTANT NERI. REPORT AND EXIT FOLDER HANDED TO EMT'S. PT LEFT UNIT @ 1715 VIA GURNEY ACCOMPANIED BY 3 EMT'S AND ONE RT FROM [facility]. VISITED AND WENT OUT OF UNIT WITH THE AMBULANCE CREWS. MD AND CHARGE NURSE AWARE OF DISCHARGE.
== END 2023-01-01 17:15 | DRG 870 ==
LOC: ER 11:40 → TELE 18:35
PROVIDERS: ADMIT Internal Medicine; ATTEND Internal Medicine
PROC: 5A1955Z Respiratory Ventilation, Greater than 96 Consecutive Hours (ICD-10-PCS; principal; 2022-12-25)
PROC: 30233N1 Transfusion of Nonautologous Red Blood Cells into Peripheral Vein, Percutaneous Approach (ICD-10-PCS; 2022-12-27)
DX: A41.89 Other specified sepsis (principal); N17.0 Acute kidney failure with tubular necrosis; R53.2 Functional quadriplegia; G93.41 Metabolic encephalopathy; I50.32 Chronic diastolic (congestive) heart failure; N39.0 Urinary tract infection, site not specified; Z99.11 Dependence on respirator [ventilator] status; J96.10 Chronic respiratory failure, unspecified whether with hypoxia or hypercapnia; Z16.19 Resistance to other specified beta lactam antibiotics; Z16.24 Resistance to multiple antibiotics; R40.3 Persistent vegetative state; J98.11 Atelectasis; E87.0 Hyperosmolality and hypernatremia; I11.0 Hypertensive heart disease with heart failure; K21.9 Gastro-esophageal reflux disease without esophagitis; Z93.0 Tracheostomy status; Z93.1 Gastrostomy status; R13.10 Dysphagia, unspecified; Z86.73 Personal history of transient ischemic attack (TIA), and cerebral infarction without residual deficits; Z98.890 Other specified postprocedural states; G40.909 Epilepsy, unspecified, not intractable, without status epilepticus; N40.0 Benign prostatic hyperplasia without lower urinary tract symptoms; Z79.01 Long term (current) use of anticoagulants; Z79.51 Long term (current) use of inhaled steroids; Z79.899 Other long term (current) drug therapy; E78.5 Hyperlipidemia, unspecified; D50.9 Iron deficiency anemia, unspecified; E78.00 Pure hypercholesterolemia, unspecified; E86.0 Dehydration; L89.626 Pressure-induced deep tissue damage of left heel; L89.616 Pressure-induced deep tissue damage of right heel; S81.811A Laceration without foreign body, right lower leg, initial encounter; X58.XXXA Exposure to other specified factors, initial encounter; Y92.9 Unspecified place or not applicable; L89.899 Pressure ulcer of other site, unspecified stage; M24.562 Contracture, left knee; M24.561 Contracture, right knee; N28.1 Cyst of kidney, acquired; Z87.440 Personal history of urinary (tract) infections; Z87.01 Personal history of pneumonia (recurrent)
CPT/HCPCS: 31720; 36415; 71045-TC; 76770-TC; 80048-TC; 81001; 82247-TC; 82248-TC; 82272-TC; 83605-TC; 83735-TC; 84100-TC; 84484-TC; 85025-TC; 86850-TC; 87040-TC; 87081-TC; 87086-TC; 94002-TC; 94003-TC; 94760-TC; 94762-TC; 94799-TC; A4223; A6253; A6403; A7526; C9803; G0378; J0360; J1650; J1953; J2185; J2543; J7030; J7040; J7060; P9016; Q0162